=== PATIENT | female | born 1950 | race Two or more races ===

== ENCOUNTER → 2022-12-07 | Outpatient (CLI) | payer OTHER, MEDICAID ==
[2022-12-07 09:07] LABS: Basophils # (auto) 0.1 10 ^3/uL (0-0.2); Hemoglobin 11.3 g/dL (12.2-16.2); Neutrophils # (auto) 3.9 10 ^3/uL (1.6-8.6); Nucleated Red Blood Cells % 0.1 %
[2022-12-07 09:09] LABS: Eosinophils # (auto) 1.2 10 ^3/uL (0-0.8); Eosinophils % (auto) 12.3 % (0.0-7.0); Hematocrit 35.7 % (36.0-46.0); Lymphocytes # (auto) 3.7 10 ^3/uL (0.4-5.4); Lymphocytes % (auto) 39.4 % (10.0-50.0); Mean Corpuscular Hemoglobin 23.8 pg (28.0-32.0); Mean Corpuscular Hgb Conc. 31.7 g/dL (32.0-36.0); Monocytes # (auto) 0.6 10 ^3/uL (0-1.3); Neutrophils % (auto) 41.3 % (37.0-80.0); Red Blood Cells 4.76 10^6/uL (4.0-5.20); Red Cell Distribution Width 19.3 % (11.8-14.3); White Blood Cell 9.5 10^3/uL (4.4-10.8)
[2022-12-07 09:50] LABS: Urine Bacteria FEW /hpf (None Seen); Urine Blood Negative /uL (Negative); Urine Clarity Clear (Clear); Urine Color Colorless (Yellow); Urine Protein, UAD Negative (Negative); Urine Specific Gravity 1.015 (1.001-1.035); Urine Urobilinogen Normal (Negative); Urine WBC 2 /hpf (0 - 5); Urine pH 5.5 (5.0-8.0)
[2022-12-07 10:28] LABS: Alanine Aminotransferase 31 U/L (7-40); Alkaline Phosphatase 78 U/L (46-116); Anion Gap 9 (5-15); Calcium 9.7 mg/dL (8.5-10.1); Carbon Dioxide 28 mmol/L (20-30); Chloride 102 mmol/L (98-107); Creatinine, Urine 62.55 mg/dL (30.0-125.0); Glucose 145 mg/dL (74-106); Potassium 4.1 mmol/L (3.5-5.1); Sodium 139 mmol/L (136-145)
[2022-12-07 10:29] LABS: LDL Cholesterol 106 mg/dL (< 100); Triglycerides 226 mg/dL (< 150)
[2022-12-07 10:30] LABS: Albumin 4.6 g/dL (3.2-4.8); Aspartate Aminotransferase 32 U/L (13-40); BUN/Creatinine Ratio 18.2 (10.0-20.0); Blood Urea Nitrogen 10 mg/dL (9-23); Cholesterol 179 mg/dL (< 200); HDL Cholesterol 44 mg/dL (40-59)
[2022-12-07 10:31] LABS: Bilirubin, Total 0.4 mg/dL (0.2-1.0); Total Protein 7.9 g/dL (5.7-8.2)
== END | disposition home or self-care (01) ==
LOC: LAB 08:54
PROVIDERS: ATTEND Student in an Organized Health Care Education/Training Program
DX: E11.9 Type 2 diabetes mellitus without complications (principal); E78.5 Hyperlipidemia, unspecified; D64.9 Anemia, unspecified
CPT/HCPCS: 36415; 80053; 80061; 81001; 82043; 82306; 82570; 83036; 84443; 85025

== ENCOUNTER → 2023-02-10 | Outpatient (CLI) | payer OTHER, MEDICAID ==
[2023-02-10 07:37] LABS: Basophils # (auto) 0 10 ^3/uL (0-0.2); Eosinophils # (auto) 0.2 10 ^3/uL (0-0.8); Hemoglobin 11.7 g/dL (12.2-16.2); Lymphocytes # (auto) 4.1 10 ^3/uL (0.4-5.4); Monocytes # (auto) 0.5 10 ^3/uL (0-1.3)
[2023-02-10 07:40] LABS: Basophils % (auto) 0.4 % (0.0-2.0); Eosinophils % (auto) 2.8 % (0.0-7.0); Hematocrit 36.7 % (36.0-46.0); Lymphocytes % (auto) 47.7 % (10.0-50.0); Mean Corpuscular Hemoglobin 25.5 pg (28.0-32.0); Mean Corpuscular Hgb Conc. 31.9 g/dL (32.0-36.0); Monocytes % (auto) 5.8 % (0.0-12.0); Neutrophils # (auto) 3.8 10 ^3/uL (1.6-8.6); Neutrophils % (auto) 43.3 % (37.0-80.0); Red Blood Cells 4.59 10^6/uL (4.0-5.20); White Blood Cell 8.7 10^3/uL (4.4-10.8)
[2023-02-10 07:41] LABS: Urine Bacteria NONE SEEN /hpf (None Seen); Urine Blood Negative /uL (Negative); Urine Clarity HAZY (Clear); Urine Color Yellow (Yellow); Urine Protein, UAD TRACE (Negative); Urine Specific Gravity 1.015 (1.001-1.035); Urine Urobilinogen Normal (Negative); Urine WBC 18 /hpf (0 - 5); Urine pH 5.5 (5.0-8.0)
[2023-02-10 07:54] LABS: Red Cell Distribution Width 21.4 % (11.8-14.3)
[2023-02-10 08:55] LABS: Alanine Aminotransferase 24 U/L (7-40); Alkaline Phosphatase 99 U/L (46-116); Anion Gap 10 (5-15); BUN/Creatinine Ratio 15.3 (10.0-20.0); Blood Urea Nitrogen 9 mg/dL (9-23); Calcium 9.7 mg/dL (8.5-10.1); Carbon Dioxide 27 mmol/L (20-30); Chloride 104 mmol/L (98-107); Glucose 139 mg/dL (74-106); LDL Cholesterol 52 mg/dL (< 100); Potassium 3.8 mmol/L (3.5-5.1); Sodium 141 mmol/L (136-145); Triglycerides 137 mg/dL (< 150)
[2023-02-10 08:56] LABS: Albumin 4.6 g/dL (3.2-4.8); Aspartate Aminotransferase 28 U/L (13-40)
[2023-02-10 08:57] LABS: Bilirubin, Total 0.5 mg/dL (0.2-1.0); Cholesterol 110 mg/dL (< 200); HDL Cholesterol 41 mg/dL (40-59); Total Protein 7.5 g/dL (5.7-8.2)
[2023-02-10 12:58] LABS: Anisocytosis Slight; Platelet Estimate Adequate
== END | disposition home or self-care (01) ==
LOC: LAB 07:12
PROVIDERS: ATTEND Student in an Organized Health Care Education/Training Program
DX: E11.9 Type 2 diabetes mellitus without complications (principal); E78.5 Hyperlipidemia, unspecified; E55.9 Vitamin D deficiency, unspecified
CPT/HCPCS: 36415; 80053; 80061; 81001; 82306; 83036; 85025

== ENCOUNTER → 2023-06-27 | Outpatient (CLI) | payer MEDICAID ==
[~2023-06-27] MED LIST: NIRM1TAB8 PO
[2023-06-27 09:25] LABS: Urine Bacteria None Seen /hpf (None Seen)
[2023-06-27 09:56] LABS: Basophils # (auto) 0 10 ^3/uL (0-0.2); Basophils % (auto) 0.3 % (0.0-2.0); Eosinophils # (auto) 0.2 10 ^3/uL (0-0.8); Neutrophils # (auto) 4.4 10 ^3/uL (1.6-8.6)
[2023-06-27 09:58] LABS: Eosinophils % (auto) 2.5 % (0.0-7.0); Hematocrit 36.2 % (36.0-46.0); Hemoglobin 11.9 g/dL (12.2-16.2); Lymphocytes # (auto) 3.8 10 ^3/uL (0.4-5.4); Lymphocytes % (auto) 42.6 % (10.0-50.0); Mean Corpuscular Hemoglobin 27.1 pg (28.0-32.0); Mean Corpuscular Hgb Conc. 32.8 g/dL (32.0-36.0); Mean Corpuscular Volume 82.7 fL (80.0-100.0); Monocytes # (auto) 0.5 10 ^3/uL (0-1.3); Monocytes % (auto) 5.8 % (0.0-12.0); Neutrophils % (auto) 48.8 % (37.0-80.0); Red Blood Cells 4.37 10^6/uL (4.0-5.20); Red Cell Distribution Width 17.4 % (11.8-14.3)
[2023-06-27 10:28] LABS: Alanine Aminotransferase 16 U/L (7-40); Alkaline Phosphatase 54 U/L (46-116); Anion Gap 9 (5-15); BUN/Creatinine Ratio 13.3 (10.0-20.0); Blood Urea Nitrogen 8 mg/dL (9-23); Calcium 9.8 mg/dL (8.5-10.1); Carbon Dioxide 29 mmol/L (20-30); Chloride 101 mmol/L (98-107); Glucose 143 mg/dL (74-106); Potassium 4.1 mmol/L (3.5-5.1); Sodium 139 mmol/L (136-145); Triglycerides 140 mg/dL (< 150)
[2023-06-27 10:29] LABS: Albumin 4.7 g/dL (3.2-4.8); Aspartate Aminotransferase 25 U/L (13-40); LDL Cholesterol 36 mg/dL (< 100)
[2023-06-27 10:30] LABS: Bilirubin, Total 0.5 mg/dL (0.2-1.0); Cholesterol 98 mg/dL (< 200); HDL Cholesterol 42 mg/dL (40-59); Total Protein 7.9 g/dL (5.7-8.2)
[2023-06-27 11:49] LABS: Urine Blood Negative /uL (Negative); Urine Clarity Clear (Clear); Urine Color Yellow (Yellow); Urine Hyaline Cast FEW /lpf (0 - 2); Urine Mucus FEW (None Seen); Urine Protein, UAD 1+ (Negative); Urine Urobilinogen Normal (Negative); Urine WBC 29 /hpf (0 - 5)
== END | disposition home or self-care (01) ==
LOC: LAB 09:14
PROVIDERS: ATTEND Student in an Organized Health Care Education/Training Program
DX: E11.42 Type 2 diabetes mellitus with diabetic polyneuropathy (principal); E78.5 Hyperlipidemia, unspecified; E55.9 Vitamin D deficiency, unspecified; D64.9 Anemia, unspecified
CPT/HCPCS: 36415; 80053; 80061; 81001; 82306; 83036; 84443; 85025

== ENCOUNTER → 2023-07-21 | Day surgery (SDC) | payer MEDICAID ==
[2023-07-14 10:59] LABS: Basophils # (auto) 0 10 ^3/uL (0-0.2); Basophils % (auto) 0.4 % (0.0-2.0); Eosinophils # (auto) 0.2 10 ^3/uL (0-0.8); Eosinophils % (auto) 2.4 % (0.0-7.0); Hematocrit 35.2 % (36.0-46.0); Hemoglobin 11.4 g/dL (12.2-16.2); Lymphocytes # (auto) 2.9 10 ^3/uL (0.4-5.4); Lymphocytes % (auto) 38.2 % (10.0-50.0); Mean Corpuscular Hemoglobin 26.9 pg (28.0-32.0); Mean Corpuscular Hgb Conc. 32.4 g/dL (32.0-36.0); Mean Corpuscular Volume 83.1 fL (80.0-100.0); Monocytes # (auto) 0.4 10 ^3/uL (0-1.3); Red Blood Cells 4.23 10^6/uL (4.0-5.20); Red Cell Distribution Width 16.6 % (11.8-14.3); White Blood Cell 7.5 10^3/uL (4.4-10.8)
[2023-07-14 11:12] LABS: INR 1.11 (0.9-1.15); Partial Thromboplastin Time 25.3 SEC (24.5-34.5); Prothrombin Time 11.7 sec (9.3-11.8)
[2023-07-14 11:29] LABS: Alanine Aminotransferase 22 U/L (7-40); Alkaline Phosphatase 54 U/L (46-116); Anion Gap 8 (5-15); BUN/Creatinine Ratio 12.9 (10.0-20.0); Blood Urea Nitrogen 8 mg/dL (9-23); Calcium 10.2 mg/dL (8.5-10.1); Carbon Dioxide 28 mmol/L (20-30); Chloride 101 mmol/L (98-107); Glucose 271 mg/dL (74-106); Potassium 3.9 mmol/L (3.5-5.1); Sodium 137 mmol/L (136-145)
[2023-07-14 11:30] LABS: Albumin 4.5 g/dL (3.2-4.8); Aspartate Aminotransferase 24 U/L (13-40); Bilirubin, Total 0.4 mg/dL (0.2-1.0); Total Protein 7.5 g/dL (5.7-8.2)
[~2023-07-21] VITALS: Ht 162.6 cm; Wt 65.8 kg
[~2023-07-21] MED LIST changes: -NIRM1TAB8 PO; +SODIUM CHLORIDE LOCK 10 ML ONE
[2023-07-21 12:36] VITALS: O2SAT 96
[2023-07-21] MEDS: LIDOCAINE VISCOUS 2% 15ML UD ONE (12:46)
[2023-07-21] MEDS: fentaNYL CITRATE 100 MCG/2 ML VL ONE (12:49)
[2023-07-21] MEDS: MIDAZOLAM HCL 5 MG/ML-1ML VIAL ONE (12:49)
[2023-07-21] MEDS: diphenhdrAMINE HCL 50 MG/1 ML VL ONE (12:49)
[2023-07-21 13:00] VITALS: TEMP 98; O2SAT 93
[2023-07-21 13:35] VITALS: BP 129/70; PULSE 74; RESP 19; O2SAT 95
== END | disposition home or self-care (01) ==
LOC: GI 09:29
PROVIDERS: ATTEND Internal Medicine Gastroenterology
DX: C7A.092 Malignant carcinoid tumor of the stomach (principal); K29.70 Gastritis, unspecified, without bleeding; K29.50 Unspecified chronic gastritis without bleeding; K21.9 Gastro-esophageal reflux disease without esophagitis; E11.9 Type 2 diabetes mellitus without complications; J45.909 Unspecified asthma, uncomplicated; F32.A Depression, unspecified; Z86.16 Personal history of COVID-19; Z90.710 Acquired absence of both cervix and uterus
CPT/HCPCS: 36415; 43239; 80053; 82962; 85025; 85610; 85730; 88305; 88312; 88342; J1200; J2250; J3010; J7030

== ENCOUNTER → 2023-10-18 | Outpatient (CLI) | payer MEDICAID ==
[2023-10-18 07:39] LABS: Basophils # (auto) 0 10 ^3/uL (0-0.2); Basophils % (auto) 0.5 % (0.0-2.0); Eosinophils # (auto) 0.2 10 ^3/uL (0-0.8); Eosinophils % (auto) 2.7 % (0.0-7.0); Hematocrit 35.7 % (36.0-46.0); Hemoglobin 11.6 g/dL (12.2-16.2); Lymphocytes % (auto) 44.8 % (10.0-50.0); Mean Corpuscular Hemoglobin 27.1 pg (28.0-32.0); Mean Corpuscular Hgb Conc. 32.4 g/dL (32.0-36.0); Mean Corpuscular Volume 83.5 fL (80.0-100.0); Monocytes # (auto) 0.5 10 ^3/uL (0-1.3); Monocytes % (auto) 5.7 % (0.0-12.0); Neutrophils # (auto) 4.2 10 ^3/uL (1.6-8.6); Neutrophils % (auto) 46.3 % (37.0-80.0); Nucleated Red Blood Cells % 0.1 %; Red Blood Cells 4.28 10^6/uL (4.0-5.20)
[2023-10-18 08:22] LABS: Urine Bacteria FEW /hpf (None Seen); Urine Blood Negative /uL (Negative); Urine Clarity Clear (Clear); Urine Color Yellow (Yellow); Urine Mucus FEW (None Seen); Urine Protein, UAD TRACE (Negative); Urine Specific Gravity 1.023 (1.001-1.035); Urine Urobilinogen Normal (Negative); Urine WBC 4 /hpf (0 - 5)
[2023-10-18 08:41] LABS: Alanine Aminotransferase 24 U/L (7-40); Albumin 4.6 g/dL (3.2-4.8); Alkaline Phosphatase 59 U/L (46-116); Anion Gap 7 (5-15); Aspartate Aminotransferase 21 U/L (13-40); Carbon Dioxide 28 mmol/L (20-30); Chloride 104 mmol/L (98-107); Glucose 171 mg/dL (74-106); LDL Cholesterol 49 mg/dL (< 100); Sodium 139 mmol/L (136-145); Triglycerides 208 mg/dL (< 150)
[2023-10-18 08:42] LABS: Bilirubin, Total 0.4 mg/dL (0.2-1.0); Cholesterol 116 mg/dL (< 200); HDL Cholesterol 42 mg/dL (40-59); Total Protein 7.5 g/dL (5.7-8.2)
[2023-10-18 08:48] LABS: BUN/Creatinine Ratio 16.9 (10.0-20.0); Blood Urea Nitrogen 10 mg/dL (9-23)
== END | disposition home or self-care (01) ==
LOC: LAB 07:15
DX: E11.9 Type 2 diabetes mellitus without complications (principal); E78.5 Hyperlipidemia, unspecified; D64.9 Anemia, unspecified; J30.2 Other seasonal allergic rhinitis
CPT/HCPCS: 36415; 80053; 80061; 81001; 82306; 83036; 84443; 85025

== ENCOUNTER 2023-11-21 09:58 | Day surgery (SDC) | payer MEDICAID ==
[2023-11-16 10:46] LABS: Basophils # (auto) 0 10 ^3/uL (0-0.2); Basophils % (auto) 0.3 % (0.0-2.0); Eosinophils # (auto) 0.2 10 ^3/uL (0-0.8); Eosinophils % (auto) 2.4 % (0.0-7.0); Hematocrit 34.6 % (36.0-46.0); Hemoglobin 11.4 g/dL (12.2-16.2); Lymphocytes % (auto) 36.9 % (10.0-50.0); Mean Corpuscular Hemoglobin 27.4 pg (28.0-32.0); Mean Corpuscular Hgb Conc. 32.9 g/dL (32.0-36.0); Mean Corpuscular Volume 83.1 fL (80.0-100.0); Monocytes # (auto) 0.5 10 ^3/uL (0-1.3); Monocytes % (auto) 5.7 % (0.0-12.0); Neutrophils # (auto) 4.5 10 ^3/uL (1.6-8.6); Neutrophils % (auto) 54.7 % (37.0-80.0); Platelet Count (auto) 237 10^3/uL (140-450); Red Blood Cells 4.17 10^6/uL (4.0-5.20); Red Cell Distribution Width 16.7 % (11.8-14.3); White Blood Cell 8.2 10^3/uL (4.4-10.8)
[2023-11-16 10:59] LABS: Alanine Aminotransferase 23 U/L (7-40); Albumin 4.6 g/dL (3.2-4.8); Alkaline Phosphatase 53 U/L (46-116); Anion Gap 8 (5-15); Aspartate Aminotransferase 24 U/L (13-40); BUN/Creatinine Ratio 14.5 (10.0-20.0); Blood Urea Nitrogen 9 mg/dL (9-23); Carbon Dioxide 28 mmol/L (20-30); Chloride 104 mmol/L (98-107); Glucose 199 mg/dL (74-106); Potassium 3.6 mmol/L (3.5-5.1); Sodium 140 mmol/L (136-145)
[2023-11-16 11:00] LABS: Bilirubin, Total 0.5 mg/dL (0.2-1.0); Total Protein 7.5 g/dL (5.7-8.2)
[2023-11-16 11:36] LABS: INR 1.14 (0.9-1.15); Partial Thromboplastin Time 25.4 SEC (24.5-34.5)
[~2023-11-21] VITALS: Ht 162.6 cm; Wt 64.9 kg
[~2023-11-21 09:58] MED LIST changes: +METF-372 PO; +MONT-8 OR; +SEMA2INJ3 SC; +SERT25TA28 PO; -SODIUM CHLORIDE LOCK 10 ML ONE; +TRAZ-228 PO
[2023-11-21] MEDS ORDERED: SODIUM CHLORIDE LOCK 10 ML ONE (10:21)
[2023-11-21 13:00] VITALS: PULSE 73; RESP 14; O2SAT 98
[2023-11-21] MEDS: fentaNYL CITRATE 100 MCG/2 ML VL ONE (13:05)
[2023-11-21] MEDS: diphenhdrAMINE HCL 50 MG/1 ML VL ONE (13:05)
[2023-11-21] MEDS: MIDAZOLAM HCL 5 MG/ML-1ML VIAL ONE (13:05)
[2023-11-21 13:31] VITALS: PULSE 79; RESP 17; O2SAT 93
[2023-11-21 14:00] VITALS: BP 142/73; PULSE 93; RESP 17; O2SAT 93
== END 2023-11-21 14:15 | disposition home or self-care (01) ==
LOC: GI 09:58
PROVIDERS: ATTEND Internal Medicine Gastroenterology
DX: Z12.11 Encounter for screening for malignant neoplasm of colon (principal); K63.5 Polyp of colon; K57.30 Diverticulosis of large intestine without perforation or abscess without bleeding; K64.0 First degree hemorrhoids; K63.89 Other specified diseases of intestine; E11.9 Type 2 diabetes mellitus without complications; J45.909 Unspecified asthma, uncomplicated; Z79.899 Other long term (current) drug therapy; Z86.010 Personal history of colon polyps; Z85.020 Personal history of malignant carcinoid tumor of stomach
CPT/HCPCS: 36415; 45385; 80053; 82962; 85025; 85610; 85730; 88305; J1200; J2250; J3010; J7030; 99152

== ENCOUNTER → 2024-01-16 | Outpatient (CLI) | payer MEDICAID ==
[2024-01-16 08:01] LABS: Basophils # (auto) 0 10 ^3/uL (0-0.2); Basophils % (auto) 0.4 % (0.0-2.0); Eosinophils # (auto) 0.2 10 ^3/uL (0-0.8); Eosinophils % (auto) 2.4 % (0.0-7.0); Hematocrit 37.6 % (36.0-46.0); Lymphocytes # (auto) 3.7 10 ^3/uL (0.4-5.4); Lymphocytes % (auto) 44.8 % (10.0-50.0); Mean Corpuscular Hemoglobin 26.6 pg (28.0-32.0); Mean Corpuscular Hgb Conc. 31.8 g/dL (32.0-36.0); Mean Corpuscular Volume 83.7 fL (80.0-100.0); Monocytes # (auto) 0.6 10 ^3/uL (0-1.3); Monocytes % (auto) 6.9 % (0.0-12.0); Neutrophils # (auto) 3.8 10 ^3/uL (1.6-8.6); Neutrophils % (auto) 45.5 % (37.0-80.0); Nucleated Red Blood Cells % 0.1 %; Platelet Count (auto) 216 10^3/uL (140-450); Red Cell Distribution Width 16.4 % (11.8-14.3); White Blood Cell 8.3 10^3/uL (4.4-10.8)
[2024-01-16 08:06] LABS: Urine Blood Negative /uL (Negative); Urine Clarity Clear (Clear); Urine Color Light-Yellow (Yellow); Urine Protein, UAD TRACE (Negative); Urine Specific Gravity 1.015 (1.001-1.035); Urine Urobilinogen Normal (Negative)
[2024-01-16 08:26] LABS: Creatinine, Urine 117.33 mg/dL (30.0-125.0)
[2024-01-16 08:29] LABS: Alanine Aminotransferase 26 U/L (7-40); Albumin 4.6 g/dL (3.2-4.8); Alkaline Phosphatase 58 U/L (46-116); Anion Gap 5 (5-15); Aspartate Aminotransferase 27 U/L (13-40); BUN/Creatinine Ratio 11.3 (10.0-20.0); Blood Urea Nitrogen 7 mg/dL (9-23); Calcium 9.7 mg/dL (8.7-10.4); Carbon Dioxide 31 mmol/L (20-31); Chloride 104 mmol/L (98-107); Cholesterol 89 mg/dL (< 200); Glucose 141 mg/dL (74-106); HDL Cholesterol 41 mg/dL (40-59); LDL Cholesterol 31 mg/dL (< 100); Potassium 4.2 mmol/L (3.5-5.1); Sodium 140 mmol/L (136-145); Triglycerides 114 mg/dL (< 150)
[2024-01-16 08:30] LABS: Bilirubin, Total 0.4 mg/dL (0.2-1.0); Total Protein 7.8 g/dL (5.7-8.2)
== END | disposition home or self-care (01) ==
LOC: LAB 07:46
DX: E11.42 Type 2 diabetes mellitus with diabetic polyneuropathy (principal); E55.9 Vitamin D deficiency, unspecified; D64.9 Anemia, unspecified
CPT/HCPCS: 36415; 80053; 80061; 81003; 82043; 82306; 82570; 82607; 83036; 85025

== ENCOUNTER 2024-03-09 13:05 | Inpatient (IN) | payer MEDICAID ==
[~2024-03-09] VITALS: Ht 160 cm; Wt 67.7 kg
[2024-03-09 14:56] LABS: Basophils # (auto) 0 10 ^3/uL (0-0.2); Eosinophils # (auto) 0.3 10 ^3/uL (0-0.8); Eosinophils % (auto) 2.2 % (0.0-7.0); Hematocrit 33.2 % (36.0-46.0); Lymphocytes % (auto) 30.6 % (10.0-50.0); Monocytes # (auto) 0.9 10 ^3/uL (0-1.3); Neutrophils # (auto) 6.7 10 ^3/uL (1.6-8.6); Red Blood Cells 4.01 10^6/uL (4.0-5.20)
[2024-03-09 14:59] LABS: Basophils % (auto) 0.2 % (0.0-2.0); Hemoglobin 10.8 g/dL (12.2-16.2); Lymphocytes # (auto) 3.4 10 ^3/uL (0.4-5.4); Mean Corpuscular Hemoglobin 26.9 pg (28.0-32.0); Mean Corpuscular Hgb Conc. 32.5 g/dL (32.0-36.0); Mean Corpuscular Volume 82.7 fL (80.0-100.0); Monocytes % (auto) 7.6 % (0.0-12.0); Neutrophils % (auto) 59.4 % (37.0-80.0); Platelet Count (auto) 247 10^3/uL (140-450); Red Cell Distribution Width 17.3 % (11.8-14.3); White Blood Cell 11.2 10^3/uL (4.4-10.8)
[2024-03-09 15:12] LABS: Alanine Aminotransferase 23 U/L (7-40); Albumin 4.6 g/dL (3.2-4.8); Alkaline Phosphatase 60 U/L (46-116); Anion Gap 9 (5-15); Aspartate Aminotransferase 28 U/L (13-40); BUN/Creatinine Ratio 16.7 (10.0-20.0); Bilirubin, Total 0.6 mg/dL (0.2-1.0); Blood Urea Nitrogen 10 mg/dL (9-23); Calcium 10.1 mg/dL (8.7-10.4); Carbon Dioxide 26 mmol/L (20-31); Chloride 106 mmol/L (98-107); Potassium 3.8 mmol/L (3.5-5.1); Sodium 141 mmol/L (136-145); Total Protein 7.5 g/dL (5.7-8.2)
--- NOTE | 2024-03-09 15:12 | ED.PDOC ---
Ahsan. trauma (HPI) HPI Comments HPI: 73 Y F, post fall presents to the ED with CC of fall injury. Patient states, that on 03/06/24 she got up to use the bath did not turn the lights one causing her to fall and trip landing on her left shoulder. Patient relays, that she was seen this morning on 03/09/24 at [facility] for a left shoulder x-ray; and was relayed here for further treatment. Patient denies any LOC, musculoskeletal pain, or N/V/D. VITALS: T:98.3 HR:100 RR:18 O2:98 BP:131/96 SOCIAL HX: DENIES TOBACCO USAGE, ETOH CONSUMPTION, OR ILLICIT DRUG USE SHX: HYSTERECTOMY PMHX: DM, INSOMNIA ALLERGIES: NKA Chief Complaint: Fall Injury Time Seen by MD: 15:00 Reviewed notes: Nurses Notes, Medications, Allergies Allergies: Coded Allergies: NO KNOWN ALLERGIES (Unverified , 03/04/23) Home Meds Reported Medications Trazodone Hcl (Trazodone Hcl) 100 Mg Tab, 50 MG PO QPM, TAB 11/17/23 Montelukast Sodium (MONTELUKAST SODIUM) 10 Mg Tab, 10 MG OR DAILY, TAB 11/17/23 Semaglutide (Ozempic) 2 Mg/3 Ml Inj, 2 MG SC QWEEKLY, INJ 11/17/23 Metformin Hydrochloride (Metformin Hcl) 1,000 Mg Tab, 1000 MG PO BID, TAB 11/17/23 Sertraline Hcl (Sertraline Hcl) Unknown Strength Tab, PO DAILY, TAB 11/17/23 Information Source: Patient Mode of Arrival: Wheelchair Severity: Mild Timing: Days Duration: Since onset Location: (L) Shoulder Location of laceration: None Mechanism: Fall Associated signs and symtoms: None Was a procedure done? Was a procedure done?: No X-Ray, Labs, Meds, VS Vital Signs Date Time Temp Pulse Resp B/P (MAP) Pulse Ox O2 Delivery O2 Flow Rate FiO2 03/09/24 13:33 98.3 100 18 131/96 (108) 98 Lab Test 03/09/24 17:26 03/09/24 15:29 03/09/24 14:25 Range/Units Troponin I High Sensitivity Pending < 3 L < 3 L </=34 ng/L White Blood Count 11.2 H 4.4-10.8 10^3/uL Red Blood Count 4.01 4.0-5.20 10^6/uL Hemoglobin 10.8 L 12.2-16.2 g/dL Hematocrit 33.2 L 36.0-46.0 % Mean Corpuscular Volume 82.7 80.0-100.0 fL Mean Corpuscular Hemoglobin 26.9 L 28.0-32.0 pg Mean Corpuscular Hemoglobin Concent 32.5 32.0-36.0 g/dL Red Cell Distribution Width 17.3 H 11.8-14.3 % Platelet Count 247 140-450 10^3/uL Mean Platelet Volume 7.9 6.9-10.8 fL Neutrophils (%) (Auto) 59.4 37.0-80.0 % Lymphocytes (%) (Auto) 30.6 10.0-50.0 % Monocytes (%) (Auto) 7.6 0.0-12.0 % Eosinophils (%) (Auto) 2.2 0.0-7.0 % Basophils (%) (Auto) 0.2 0.0-2.0 % Neutrophils # (Auto) 6.7 1.6-8.6 10 ^3/uL Lymphocytes # (Auto) 3.4 0.4-5.4 10 ^3/uL Monocytes # (Auto) 0.9 0-1.3 10 ^3/uL Eosinophils # (Auto) 0.3 0-0.8 10 ^3/uL Basophils # (Auto) 0 0-0.2 10 ^3/uL Nucleated Red Blood Cells 0.0 % Sodium Level 141 136-145 mmol/L Potassium Level 3.8 3.5-5.1 mmol/L Chloride Level 106 98-107 mmol/L Carbon Dioxide Level 26 20-31 mmol/L Anion Gap 9 5-15 Blood Urea Nitrogen 10 9-23 mg/dL Creatinine 0.60 0.550-1.02 mg/dL Glomerular Filtration Rate Calc 96 >90 mL/min BUN/Creatinine Ratio 16.7 10.0-20.0 Serum Glucose 153 H 74-106 mg/dL Lactic Acid Level 1.2 0.4-2.0 mmol/L Calcium Level 10.1 8.7-10.4 mg/dL Total Bilirubin 0.6 0.2-1.0 mg/dL Aspartate Amino Transferase (AST) 28 13-40 U/L Alanine Aminotransferase (ALT) 23 7-40 U/L Alkaline Phosphatase 60 46-116 U/L Creatine Kinase 186 H 34-145 U/L Total Protein 7.5 5.7-8.2 g/dL Albumin 4.6 3.2-4.8 g/dL [place] [id number] Ph: [phone] DIAGNOSTIC IMAGING Diagnostic Imaging Report : [id number] Signed PATIENT: MALLORY JI ACCT: [id number] UNIT: [id number] : 1950 LOC: XY ROOM / BED: / AGE / SEX: 73 / F ADM STATUS: REG CLI SERVICE 1229 ORDERING PHYSICIAN: VIKTORIA MAE NP PROCEDURE(s): LSHD2 - L SHOULDER 2+ VIEW XRAY REASON: S/P FALL ORDER NUMBER(s): [id number], ACCESSION NUMBER(s): [id number] EXAM: XY L SHOULDER 2+ VIEW XRAY CLINICAL HISTORY: S/P FALL COMPARISON: None TECHNIQUE: XY L SHOULDER 2+ VIEW XRAY Findings/Impression: 3 views of the left shoulder. Anterior inferior dislocation of the left shoulder with a markedly displaced comminuted fracture of the humeral head. There is no evidence of blastic or lytic lesions. No radiopaque foreign bodies. ATED BY: DESTINEE DIAZ DO DICTATED DATE/TIME: 03/09/24 130 SIGNED BY: DESTINEE DIAZ DO SIGNED DATE/TIME: 03/09/24 1305 CC: [place] [id number] Ph: [phone] DIAGNOSTIC IMAGING Diagnostic Imaging Report : [id number] Signed PATIENT: MALLORY JI ACCT: [id number] UNIT: [id number] : 1950 LOC: ER ROOM / BED: / AGE / SEX: 73 / F ADM STATUS: REG ER SERVICE 1533 ORDERING PHYSICIAN: DERRICK TURNER DO PROCEDURE(s): UPEWO - UPPER EXTREMITY WO CONTRAST REASON: Left shoulder injury ORDER NUMBER(s): [id number], ACCESSION NUMBER(s): [id number] EXAM: CT UPPER EXTREMITY WO CONTRAST INDICATION: Left shoulder injury EXAM DATE: 03/09/2024 03:38 PM COMPARISON: None TECHNIQUE: Multiple axial CT images of the left shoulder were obtained using bone algorithm. Axial and coronal reformatting was done. Bone and soft tissue windows were reviewed. Radiation Dose Information: CT Dose: CTDI volume is 22.92 mGy. Dose-length product is 521.49 mGy*cm Findings/Impression: Anterior inferior dislocation of the left shoulder with comminuted fracture of the humeral head. There is no evidence of blastic or lytic lesions. No radiopaque foreign bodies. Small joint effusion. Mild soft tissue edema. ATED BY: DESTINEE DIAZ DO DICTATED DATE/TIME: 03/09/241609 SIGNED BY: DESTINEE DIAZ DO SIGNED DATE/TIME: 03/09/241609 CC: Time of 1ST Reevaluation: 15:30 Reevaluation 1ST: Unchanged Time of 2ND Reevaluation: 15:10 (Case discussed with orthopedic surgery on- call. They recommend admitting the patient to the hospital for surgical intervention. They also requested a CT scan of the left shoulder without contrast.) Patient Education/Counseling: Diagnosis, Treatment Family Education/Counseling: Diagnosis, Treatment Comments Patient presented with fall injury. Patient was found with the above mentioned diagnosis. the following medications were ordered: NONE the following tests were ordered: LABS, CT, EKG Patient ED course and VS have been stabilized. Patient has been reassessed in the ED and remained in a stable condition. Pertinent incidental findings were discussed with the patient and/or family. Patient/family voices understanding and is agreeable with plan. Patient has been observed in the ED adequate length of time to insure improvement/stability. Escalation of care considered: Consideration of escalation to observation or admission Patient was ADMITTED to the medicine team for further evaluation and treatment of their presentation. Patient was discharged. All the reports of any imaging studies that were ordered by myself were reviewed by myself. Departure 1 Departure Time of Disposition: 15:32 Impression: Primary Impression: Dislocation of left shoulder joint Additional Impressions: Shoulder fracture, left Contusion of left upper arm Disposition: ADMITTED INPATIENT Admit to: Tele Condition: Guarded Additional Instructions: [place] [id number] Ph: [phone] DIAGNOSTIC IMAGING Diagnostic Imaging Report : [id number] Signed PATIENT: MALLORY JI ACCT: [id number] UNIT: [id number] : 1950 LOC: XY ROOM / BED: / AGE / SEX: 73 / F ADM STATUS: REG CLI SERVICE 1229 ORDERING PHYSICIAN: VIKTORIA MAE NP PROCEDURE(s): LSHD2 - L SHOULDER 2+ VIEW XRAY REASON: S/P FALL ORDER NUMBER(s): [id number], ACCESSION NUMBER(s): [id number] EXAM: XY L SHOULDER 2+ VIEW XRAY CLINICAL HISTORY: S/P FALL COMPARISON: None TECHNIQUE: XY L SHOULDER 2+ VIEW XRAY Findings/Impression: 3 views of the left shoulder. Anterior inferior dislocation of the left shoulder with a markedly displaced comminuted fracture of the humeral head. There is no evidence of blastic or lytic lesions. No radiopaque foreign bodies. ATED BY: DESTINEE DIAZ DO DICTATED DATE/TIME: 03/09/24 130 SIGNED BY: DESTINEE DIAZ DO SIGNED DATE/TIME: 03/09/24 130 CC: [place] [id number] Ph: [phone] DIAGNOSTIC IMAGING Diagnostic Imaging Report : [id number] Signed PATIENT: MALLORY JI ACCT: [id number] UNIT: [id number] : 1950 LOC: ER ROOM / BED: / AGE / SEX: 73 / F ADM STATUS: REG ER SERVICE 1533 ORDERING PHYSICIAN: DERRICK TURNER DO PROCEDURE(s): UPEWO - UPPER EXTREMITY WO CONTRAST REASON: Left shoulder injury ORDER NUMBER(s): [id number], ACCESSION NUMBER(s): [id number] EXAM: CT UPPER EXTREMITY WO CONTRAST INDICATION: Left shoulder injury EXAM DATE: 03/09/2024 03:38 PM COMPARISON: None TECHNIQUE: Multiple axial CT images of the left shoulder were obtained using bone algorithm. Axial and coronal reformatting was done. Bone and soft tissue windows were reviewed. Radiation Dose Information: CT Dose: CTDI volume is 22.92 mGy. Dose-length product is 521.49 mGy*cm Findings/Impression: Anterior inferior dislocation of the left shoulder with comminuted fracture of the humeral head. There is no evidence of blastic or lytic lesions. No radiopaque foreign bodies. Small joint effusion. Mild soft tissue edema. ATED BY: DESTINEE DIAZ DO DICTATED DATE/TIME: 03/09/24 1610 SIGNED BY: DESTINEE DIAZ DO SIGNED DATE/TIME: 03/09/24 161 CC: Discharged With: Self Critical Care Note Critical Care Time?: No Stability Stability form required: No I personally scribed for DERRICK TURNER DO ([email or web address]) on 03/09/24 at 15:12. Electronically submitted by Jenni Griffith ([email or web address]). I personally scribed for DERRICK TURNER DO ([email or web address]) on 03/09/24 at 17:55. Electronically submitted by Jenni Griffith ([email or web address]). DERRICK TURNER DO Mar 09, 2024 15:12
[2024-03-09 15:29] LABS: Creatine Kinase IFCC 186 U/L (34-145); Glucose 153 mg/dL (74-106)
--- NOTE | 2024-03-09 16:13 | DVH ---
EXAM: CT UPPER EXTREMITY WO CONTRAST INDICATION: Left shoulder injury EXAM DATE: 03/09/2024 03:38 PM COMPARISON: None TECHNIQUE: Multiple axial CT images of the left shoulder were obtained using bone algorithm. Axial an d coronal reformatting was done. Bone and soft tissue windows were reviewed. Radiation Dose Information: CT Dose: CTDI volume is 22.92 mGy. Dose-length product is 521.49 mGy*cm Findings/Impression: Anterior inferior dislocation of the left shoulder with comminuted fracture of the humeral head. There is no evidence of blastic or lytic lesions. No radiopaque foreign bodies. Small joint effusion. Mild soft tissue edema.
[2024-03-09] MEDS ORDERED: DOCUSATE SOD 100 MG CAP PO PRN (20:45)
[2024-03-09] MEDS ORDERED: ONDANSETRON HCL 4 MG/2 ML VIAL IV PRN (20:45)
[2024-03-09] MEDS ORDERED: DEXTROSE (50%) 50ML SYRG IV PRN (20:45)
[2024-03-09] MEDS: SODIUM CHLORIDE 0.9% 1,000 ML IV SCH (20:45)
[2024-03-09] MEDS: ACCU-CHEK COMFORT CURVE STRIP VI SCH (22:00)
[2024-03-09] MEDS: HYDROcodone-ACET 5/325MG TAB PO PRN (22:37)
[2024-03-09] MEDS: cefTRIAXone 1GM/50ML D5W 50 ML IV ONE (22:37)
--- NOTE | 2024-03-09 22:37 | DVHHP2 ---
History of Present Illness Reason for Visit: Shoulder fracture, left History of Present Illness The patient is a 73-year-old female with past medical history of diabetes mellitus and insomnia who presented to [facility] ED for evaluation of fall injury. Patient reports on March 06, 2024 she got up to use the bath room when she tripped and fell fell landing on her left shoulder with no medical intervention. Patient developed left shoulder pain and decided to be seen here [facility] today for a left shoulder x-ray. Patient was seen and evaluated in the ED, laboratory data shows WBC 11.2, hemoglobin 10.8, hematocrit 33.2, platelets 247, sodium 141, potassium 3.8, BUN 10, creatinine 0.60, GFR 96, glucose 153, CK 186, troponin 3, blood pressure 131/96, heart rate 100, temperature 98.3 F, O2 saturation 98% on room air. Left shoulder CT revealing anterior inferior dislocation of the left shoulder with comminuted fracture of the humeral head, small joint effusion, mild soft tissue edema. Patient was started on IV antibiotic regimen Rocephin, please see medication orders section in the computer. On my assessment, patient denied chest pain, no headache, no dizziness, no diaphoresis, no loss of consciousness, no nausea, no vomiting, no fever, no chills. Patient was admitted for further evaluation and medical management. Past Medical History Diabetes mellitus, Insomnia, depression Past Surgical History Hysterectomy Family History Reviewed, noncontributory to the management of this case. Past Social History The patient lives at home, denies smoking, alcohol or illicit drugs abuse. Review of Systems Constitutional: Yes: Weakness; No: Fever, Chills, Sweats, Malaise, Other Eyes: No: Pain, Vision change, Conjunctivae inflammation, Eyelid inflammation, Other, Redness ENT: No: Ear pain, Ear discharge, Nose pain, Nose discharge, Nose congestion, Mouth pain, Mouth swelling, Throat pain, Throat swelling, Other Respiratory: No: Cough, Dry, Shortness of breath, SOB with excertion, Wheezing, Hemoptysis, Pleuritic Pain, Sputum, Wheezing, Other Cardiovascular: No: Chest Pain, Palpitations, Orthopnea, Paroxysmal Noc. Dyspnea, Edema, Lt Headedness, Other Gastrointestinal: No: Nausea, Vomiting, Abdominal Pain, Diarrhea, Constipation, Melena, Hematochezia, Other Genitourinary: No Dysuria, No Frequency, No Incontinence, No Hematuria, No R etention, No Other Musculoskeletal: other (Left shoulder pain), shoulder pain; No: neck pain, arm pain, back pain, hand pain, leg pain, foot pain Skin: No: Rash, Lesions, Jaundice, Bruising, Other Neurological: No: Weakness, Numbness, Incoordination, Change in speech, Confusion, Seizures, Other Allergies: Coded Allergies: NO KNOWN ALLERGIES (Unverified , 03/04/23) Medications Current Medications Medications Dose Ordered Sig/Cari Route Start Time Stop Time Status Last Admin Dose Admin Diagnostic Test (Pha) 1 strip ACHS 03/09/24 22:00 Insulin Human Regular HS SC 03/09/24 22:00 Insulin Human Regular AC SC 03/10/24 07:00 Dextrose 50 ml UD PRN IV 03/09/24 20:45 Sodium Chloride 1,000 ml @ 60 mls/hr [id number] IV 03/09/24 20:45 Acetaminophen/ Hydrocodone Bitart 1 tab Q4HP PRN PO 03/09/24 20:45 Ondansetron HCl 4 mg Q4HP PRN IV 03/09/24 20:45 Docusate Sodium 100 mg BIDPRN PRN PO 03/09/24 20:45 Enoxaparin Sodium 40 mg DAILY SC 03/10/24 10:00 Acetaminophen 650 mg Q6HP PRN PO 03/09/24 20:45 Ceftriaxone Sodium 50 ml @ 100 mls/hr DAILY@09 IV 03/10/24 09:00 Exam Vital Signs Vital Signs Date Time Temp Pulse Resp B/P (MAP) Pulse Ox O2 Delivery O2 Flow Rate FiO2 03/09/24 22:16 98.7 92 21 132/74 (93) 97 98.7 General Appearance: Alert, Oriented X3, Cooperative, No acute distress HEENT: Atraumatic, PERRLA, EOMI, Mucous membr. moist/pink Respiratory: Clear to auscultation, Normal air movement Cardiovascular: Regular rate, Normal S1, Normal S2, No murmurs Abdominal: Normal bowel sounds, Soft, No tenderness, No hepatospenomegaly, No masses Extremities: No clubbing, No cyanosis, No edema, Normal pulses, Other (Left shoulder tenderness) Skin: No rashes, No breakdown, No significant lesion Neuro: Normal speech, Normal tone, Sensation intact, Cranial nerves 3-12 NL, Reflexes 2+, Other (Generalized weakness) Psych/Mental Status: Mental status NL, Mood NL Labs/Xrays Labs Test 03/09/24 17:26 03/09/24 14:25 Range/Units Troponin I High Sensitivity < 3 L </=34 ng/L White Blood Count 11.2 H 4.4-10.8 10^3/uL Red Blood Count 4.01 4.0-5.20 10^6/uL Hemoglobin 10.8 L 12.2-16.2 g/dL Hematocrit 33.2 L 36.0-46.0 % Mean Corpuscular Volume 82.7 80.0-100.0 fL Mean Corpuscular Hemoglobin 26.9 L 28.0-32.0 pg Mean Corpuscular Hemoglobin Concent 32.5 32.0-36.0 g/dL Red Cell Distribution Width 17.3 H 11.8-14.3 % Platelet Count 247 140-450 10^3/uL Mean Platelet Volume 7.9 6.9-10.8 fL Neutrophils (%) (Auto) 59.4 37.0-80.0 % Lymphocytes (%) (Auto) 30.6 10.0-50.0 % Monocytes (%) (Auto) 7.6 0.0-12.0 % Eosinophils (%) (Auto) 2.2 0.0-7.0 % Basophils (%) (Auto) 0.2 0.0-2.0 % Neutrophils # (Auto) 6.7 1.6-8.6 10 ^3/uL Lymphocytes # (Auto) 3.4 0.4-5.4 10 ^3/uL Monocytes # (Auto) 0.9 0-1.3 10 ^3/uL Eosinophils # (Auto) 0.3 0-0.8 10 ^3/uL Basophils # (Auto) 0 0-0.2 10 ^3/uL Nucleated Red Blood Cells 0.0 % Sodium Level 141 136-145 mmol/L Potassium Level 3.8 3.5-5.1 mmol/L Chloride Level 106 98-107 mmol/L Carbon Dioxide Level 26 20-31 mmol/L Anion Gap 9 5-15 Blood Urea Nitrogen 10 9-23 mg/dL Creatinine 0.60 0.550-1.02 mg/dL Glomerular Filtration Rate Calc 96 >90 mL/min BUN/Creatinine Ratio 16.7 10.0-20.0 Serum Glucose 153 H 74-106 mg/dL Lactic Acid Level 1.2 0.4-2.0 mmol/L Calcium Level 10.1 8.7-10.4 mg/dL Total Bilirubin 0.6 0.2-1.0 mg/dL Aspartate Amino Transferase (AST) 28 13-40 U/L Alanine Aminotransferase (ALT) 23 7-40 U/L Alkaline Phosphatase 60 46-116 U/L Creatine Kinase 186 H 34-145 U/L Total Protein 7.5 5.7-8.2 g/dL Albumin 4.6 3.2-4.8 g/dL PATIENT: MALLORY JI ACCT: [id number] UNIT: [id number] : 1950 LOC: ER ROOM / BED: / AGE / SEX: 73 / F ADM STATUS: REG ER SERVICE 1533 ORDERING PHYSICIAN: DERRICK TURNER DO PROCEDURE(s): UPEWO - UPPER EXTREMITY WO CONTRAST REASON: Left shoulder injury ORDER NUMBER(s): [id number], ACCESSION NUMBER(s): [id number] EXAM: CT UPPER EXTREMITY WO CONTRAST INDICATION: Left shoulder injury EXAM DATE: 03/09/2024 03:38 PM COMPARISON: None TECHNIQUE: Multiple axial CT images of the left shoulder were obtained using bone algorithm. Axial and coronal reformatting was done. Bone and soft tissue windows were reviewed. Radiation Dose Information: CT Dose: CTDI volume is 22.92 mGy. Dose-length product is 521.49 mGy*cm Findings/Impression: Anterior inferior dislocation of the left shoulder with comminuted fracture of the humeral head. There is no evidence of blastic or lytic lesions. No radiopaque foreign bodies. Small joint effusion. Mild soft tissue edema. Assessment/Plan Assessment/Plan Dislocation of left shoulder joint Shoulder fracture, left Contusion of left upper arm Generalized weakness Leukocytosis, unspecified Plan 1. Admit to telemetry unit 2. Breathing treatment 3. Pain control management 4. IV antibiotic management 5. Management of fluids and electrolytes 6. Consultation for orthopedic surgery 7. Diagnostic test left shoulder CT 8. DVT prophylaxis-on Lovenox 9. Repeat labs CBC, CMP in a.m. 10. Home medication reviewed and reconciled 11. Continue with current medical management 12. Treatment plan discussed with patient and RN. Patient verbalized understanding. Plan discussed with: Patient, Other (RN) My Orders Orders - ROSEMARY ABEL DNP Procedure Category Date Status Time Consistent DIET 03/10/24 Transmitted Carb(Ccho)Diabetes Breakfast Glucose Blood PHA 03/09/24 In Process (Accu-Chek Comfort 22:00 Insulin R (Human) PHA 03/09/24 In Process (Insulin R) 22:00 Insulin R (Human) PHA 03/10/24 In Process (Insulin R) 07:00 Dextrose 50% Syringe PHA 03/09/24 In Process 20:45 Allergies BARBARA 03/09/24 In Process 20:45 Code Status CODE 03/09/24 Transmitted 20:45 Sodium Chloride 0.9% PHA 03/09/24 In Process 20:45 Oxygen Per Hour RT 03/09/24 Transmitted 20:45 Hydrocodone-Acet PHA 03/09/24 In Process 5/325mg Tab (Lerna 20:45 Ondansetron Hcl PHA 03/09/24 In Process (Zofran) 20:45 Docusate Sodium PHA 03/09/24 In Process Capsule (Colace 20:45 Enoxaparin Sodium PHA 03/10/24 In Process (Lovenox) 10:00 Fall Risk Precautions BARBARA 03/09/[address] 20:45 Complete Blood Count LAB 03/10/24 Verified 04:00 Comprehensive LAB 03/10/24 Verified Metabolic Panel 04:00 Condition: Serious BARBARA 03/09/24 In Process 20:45 Acetaminophen Tablet PHA 03/09/24 In Process (Tylenol Tablet) 20:45 Sequential BARBARA 03/09/24 In Process Compression Device Ceftriaxone 1gm/50ml PHA 03/10/24 In Process D5w (Rocephin) 09:00 Admit ADMIT 03/09/24 Verified 22:35 Nitroglycerin PHA 03/09/24 Verified Sublingual (Ntrostat 22:45 Morphine Sulfate PHA 03/09/24 Verified Injection 22:45 Notify Of Changes BARBARA 03/09/24 Verified From Base 22:35 Child Nurse For BARBARA 03/09/24 Verified 24 Hours 22:35 Emergency Dysrhythmia BARBARA 03/09/24 Verified Protocol 22:35 Rhythm Strips Once BARBARA 03/09/24 Verified Every Shift 22:35 Oxygen By Nasal RT 03/09/24 Verified Cannula 22:35 Problem List: (1) Dislocation of left shoulder joint (2) Shoulder fracture, left (3) Contusion of left upper arm (4) Generalized weakness (5) Leukocytosis, unspecified Date of Service: Mar 09, 2024 Billing Provider: ROSEMARY ABEL DNP Common Visit Codes: 40314-[id number] INP/OBS CARE (HIGH) ROSEMARY ABEL DNP Mar 09, 2024 22:37
[2024-03-09] MEDS ORDERED: NITROGLYCERIN 0.4 MG SL TAB SL PRN (22:45)
[2024-03-09] MEDS ORDERED: MORPHINE SULFATE INJ 2 MG/ml SYRG IV PRN (22:45)
[2024-03-09] MEDS: InsuLIN REG 1unit/0.01ml Soln (100units/ml) SC SCH (23:02)
[2024-03-10 01:01] VITALS: PULSE 87; RESP 18; O2SAT 97
[2024-03-10] MEDS: InsuLIN REG 1unit/0.01ml Soln (100units/ml) SC SCH (06:46)
[2024-03-10 07:02] LABS: Basophils # (auto) 0 10 ^3/uL (0-0.2); Basophils % (auto) 0.3 % (0.0-2.0); Eosinophils # (auto) 0.2 10 ^3/uL (0-0.8); Eosinophils % (auto) 2.1 % (0.0-7.0); Hematocrit 28.7 % (36.0-46.0); Hemoglobin 9.4 g/dL (12.2-16.2); Lymphocytes # (auto) 4.1 10 ^3/uL (0.4-5.4); Lymphocytes % (auto) 46.5 % (10.0-50.0); Mean Corpuscular Hemoglobin 27.2 pg (28.0-32.0); Mean Corpuscular Hgb Conc. 32.8 g/dL (32.0-36.0); Mean Corpuscular Volume 83.1 fL (80.0-100.0); Monocytes # (auto) 0.6 10 ^3/uL (0-1.3); Monocytes % (auto) 6.3 % (0.0-12.0); Neutrophils # (auto) 3.9 10 ^3/uL (1.6-8.6); Neutrophils % (auto) 44.8 % (37.0-80.0); Platelet Count (auto) 199 10^3/uL (140-450); Red Blood Cells 3.46 10^6/uL (4.0-5.20); Red Cell Distribution Width 17.1 % (11.8-14.3); White Blood Cell 8.8 10^3/uL (4.4-10.8)
[2024-03-10 07:44] LABS: Alanine Aminotransferase 22 U/L (7-40); Albumin 3.9 g/dL (3.2-4.8); Alkaline Phosphatase 49 U/L (46-116); Anion Gap 7 (5-15); Aspartate Aminotransferase 42 U/L (13-40); BUN/Creatinine Ratio 13.5 (10.0-20.0); Bilirubin, Total 0.6 mg/dL (0.2-1.0); Blood Urea Nitrogen 7 mg/dL (9-23); Carbon Dioxide 27 mmol/L (20-31); Chloride 107 mmol/L (98-107); Glucose 158 mg/dL (74-106); Potassium 3.3 mmol/L (3.5-5.1); Sodium 141 mmol/L (136-145); Total Protein 6.5 g/dL (5.7-8.2)
[2024-03-10] MEDS: cefTRIAXone 1GM/50ML D5W 50 ML IV SCH (09:29)
[2024-03-10] MEDS: ENOXAPARIN SOD 40 MG/0.4 ML SYRINGE SC SCH (10:54)
[2024-03-10 11:09] VITALS: PULSE 76; RESP 14; O2SAT 95
[2024-03-10] MEDS ORDERED: POTASSIUM EFFERVESENT TAB 25 MEQ GT ONE (11:15)
[2024-03-10 11:19] LABS: Urine Bacteria None Seen /hpf (None Seen)
[2024-03-10 11:32] LABS: Urine Blood TRACE /uL (Negative); Urine Clarity Turbid (Clear); Urine Color Colorless (Yellow); Urine Mucus FEW (None Seen); Urine Protein, UAD TRACE (Negative); Urine Specific Gravity 1.014 (1.001-1.035); Urine Squamous Epithelial Cell MOD /hpf (<5); Urine Urobilinogen Normal (Negative); Urine WBC 733 /hpf (0 - 5); Urine pH 5.5 (5.0-9.0)
[2024-03-10 11:40] LABS: INR 1.09 (0.9-1.15); Prothrombin Time 11.5 sec (9.3-11.8)
[2024-03-10 11:51] LABS: Benzodiazephine Screen, Urine Neg (NEGATIVE); Opiate Scree,Urine Pos (NEGATIVE)
[2024-03-10 11:52] LABS: Amphetamine Screen, Urine Neg (NEGATIVE); Barbiturate Scree,Urine Neg (NEGATIVE); Cannabinoid Screen, Urine Neg (NEGATIVE); Cocaine Screen, Urine Neg (NEGATIVE); Phencyclidine Screen, Urine Neg (NEGATIVE)
--- NOTE | 2024-03-10 11:56 | DVHPNRES ---
Progress Note Date Seen: Mar 10, 2024 Resident Creating Document: DELL WOOTEN RESIDENT Has the PT tested + for MRSA If YES, has PT been informed?: No Medical Necessity Reason Pt with a Central, PICC or Fol: No Objective vital signs Vital Sign Date Time Temp Pulse Resp B/P (MAP) Pulse Ox O2 Delivery O2 Flow Rate FiO2 03/10/24 11:09 76 14 95 Room Air* 0 21 03/10/24 06:42 119/62 (81) 03/10/24 00:54 98.7 98.7 medications Current Medications Medications Dose Ordered Sig/Cari Route Start Time Stop Time Status Last Admin Dose Admin Diagnostic Test (Pha) 1 strip ACHS 03/09/24 22:00 03/10/24 11:37 1 STRIP Insulin Human Regular HS SC 03/09/24 22:00 03/09/24 23:02 3 UNITS Insulin Human Regular AC SC 03/10/24 07:00 03/10/24 11:49 2 UNITS Dextrose 50 ml UD PRN IV 03/09/24 20:45 Sodium Chloride 1,000 ml @ 60 mls/hr [id number] IV 03/09/24 20:45 03/09/24 20:45 60 MLS/HR Acetaminophen/ Hydrocodone Bitart 1 tab Q4HP PRN PO 03/09/24 20:45 03/10/24 09:29 1 TAB Ondansetron HCl 4 mg Q4HP PRN IV 03/09/24 20:45 Docusate Sodium 100 mg BIDPRN PRN PO 03/09/24 20:45 Enoxaparin Sodium 40 mg DAILY SC 03/10/24 10:00 03/10/24 10:54 40 MG Acetaminophen 650 mg Q6HP PRN PO 03/09/24 20:45 Ceftriaxone Sodium 50 ml @ 100 mls/hr DAILY@09 IV 03/10/24 09:00 03/10/24 09:29 100 MLS/HR Nitroglycerin 0.4 mg Q5MINP PRN SL 03/09/24 22:45 Morphine Sulfate 2 mg Q30M PRN IV 03/09/24 22:45 Examination General Appearance: Alert, Oriented X3, Cooperative, No acute distress HEENT: Atraumatic, PERRLA, EOMI, Mucous membr. moist/pink Respiratory: Clear to auscultation, Normal air movement Cardiovascular: Regular rate, Normal S1, Normal S2, No murmurs Abdominal: Normal bowel sounds, Soft, No tenderness, No hepatospenomegaly, No masses Extremities: No clubbing, No cyanosis, No edema, Normal pulses, Other (Left shoulder tenderness) Skin: No rashes, No breakdown, No significant lesion Neuro: Normal speech, Normal tone, Sensation intact, Cranial nerves 3-12 NL, Reflexes 2+, Other (Generalized weakness) Psych/Mental Status: Mental status NL, Mood NL laboratory and microbiology Laboratory Tests 03/10/24 06:47 Test 03/10/24 06:47 Range/Units Serum Glucose 158 H 74-106 mg/dL Labs and/or images reviewed: Labs reviewed by me, Image(s) reviewed by me Problem List/Assessment/Plan Problem List/Assessment/Plan Hospitalization summary/ Assessment: A 73-year-old female with diabetes mellitus and insomnia presented to the ED after falling and injuring her left shoulder on March 06, 2024. She reported tripping while getting up to use the bathroom, resulting in left shoulder pain. A CT scan revealed an anterior inferior dislocation with a comminuted fracture of the humeral head, small joint effusion, and mild soft tissue edema. Lab results showed elevated WBC (11.2) and troponin (3), with other values within normal ranges. She was started on IV Rocephin and admitted for further evaluation and management. She denies smoking, alcohol, or drug use and lives at home. Patient is hemodynamically stable, initially tried at home ibuprofen did not help came to the ED for further evaluation. Plan: # Dislocation of left shoulder joint: Pain controlled, no neurovascular compromise, Consulted orthopedics. PT INR WNL, H&H stable, patient do have schedule surgery today around 12:00 p.m. # Leukocytosis likely Due to stress/UTI: Hemodynamically stable, afebrile continue IV ceftriaxone. # hypokalemia 3.3, corrected , recurrent hypokalemia corrected again. # elevated CK: Elevated CK 150, 688, IV fluid to continue trend CK>>> Trending down in 300s , renal function intact. # UTI , likely Gram-negative: Continue ceftriaxone check blood culture, urine culture. # Anxiety /insomnia: On trazodone 50 mg daily and sertraline 100 mg daily at nighttime. # Diabetes mellitus type 2: Ozempic and metformin at home. SSI in-hospital. # Microcytic anemia: Iron, FOBT, ferritin to follow up. Iron-deficiency anemia: # GERD: At home patient takes omeprazole 40 daily. oral pantoprazole to continue # COPD/asthma patient on Wixela , albuterol, and fluticasone. # back pain, DDD: Patient on home gabapentin 300 mg daily. # Osteoporosis: Patient on ibandronate: My 50 mg tablet # Seasonal allergic 1 cetirizine 10 mg daily , montelukast 10 mg daily. # dyslipidemia: atorvastatin 80 mg daily Diet: CC, NPO after midnight. GI prophylaxis: protonix 40mg Oral DVT prophylaxis: Levonox 40mg subcutaneous Bowel regimen: not needed Barriers to discharge: Medical diagnosis and managment in progress. Patient lives with self / family. Independent/need supportive device/wheelchair/person support for ADL. PT and SW consult as needed. PCP: Dr. Wilkinson Specialist Relevent To Admission: orthopedics, consulted. Patient care and plan discussed with Dr. Ambrose Disposition: Patient remains in Tele Plan discussed with: Patient, Spouse, Other (Primary team, RN) My Orders My Orders Orders - DELL WOOTEN Procedure Category Date Status Time Complete Blood Count LAB 03/11/24 Verified 04:00 Comprehensive LAB 03/11/24 Verified Metabolic Panel 04:00 Creatine Kinase LAB 03/10/24 In Process 11:09 Blood Alcohol LAB 03/10/24 In Process 11:10 Thyroid Stimulating LAB 03/10/24 In Process Hormone 11:10 Date of Service: Mar 10, 2024 Billing Provider: WANDA BRADSHAW MD Common Visit Codes: [id number] INP/OBS CARE(HIGH) DELL WOOTEN RESIDENT Mar 10, 2024 11:56 WANDA BRADSHAW MD Mar 13, 2024 09:23
[2024-03-10] MEDS: POTASSIUM EFFERVESENT TAB 25 MEQ PO ONE (13:47)
--- NOTE | 2024-03-10 15:50 | DVH ---
CHEST RADIOGRAPH Indication: CAD Technique: Single frontal view of the chest was obtained COMPARISON: XY CHEST PORTABLE on DOS: 03/04/23 FINDINGS: Lines and Tubes: None Lungs: Congestion Pleura: No effusion. No pneumothorax. Cardiomediastinal contours: Unremarkable Bones: Unremarkable IMPRESSION: Mild congestion
[2024-03-10] MEDS: PANTOPRAZOLE 40 MG TAB PO ONE (17:14)
[2024-03-10] MEDS: SODIUM CHLORIDE 0.9% 1,000 ML IV SCH (17:16)
[2024-03-10 20:00] VITALS: PULSE 77; RESP 17; O2SAT 94
[2024-03-11] MEDS: MORPHINE SULFATE INJ 2 MG/ml SYRG IV PRN (04:39)
[2024-03-11] MEDS: PANTOPRAZOLE 40 MG TAB PO SCH (06:00)
[2024-03-11 07:30] VITALS: PULSE 87; RESP 16; O2SAT 96
[2024-03-11 07:40] LABS: Alanine Aminotransferase 20 U/L (7-40); Albumin 3.9 g/dL (3.2-4.8); Alkaline Phosphatase 52 U/L (46-116); Anion Gap 8 (5-15); Aspartate Aminotransferase 36 U/L (13-40); Carbon Dioxide 26 mmol/L (20-31); Chloride 106 mmol/L (98-107); Sodium 140 mmol/L (136-145)
[2024-03-11 07:41] LABS: Bilirubin, Total 0.7 mg/dL (0.2-1.0); Total Protein 6.5 g/dL (5.7-8.2)
[2024-03-11 07:50] LABS: BUN/Creatinine Ratio 11.6 (10.0-20.0); Blood Urea Nitrogen < 5 mg/dL (9-23); Creatine Kinase IFCC 351 U/L (34-145); Glucose 136 mg/dL (74-106); Potassium 3.4 mmol/L (3.5-5.1)
[2024-03-11 08:34] LABS: Basophils # (auto) 0 10 ^3/uL (0-0.2); Basophils % (auto) 0.2 % (0.0-2.0); Eosinophils # (auto) 0.2 10 ^3/uL (0-0.8); Hematocrit 28.6 % (36.0-46.0); Hemoglobin 9.4 g/dL (12.2-16.2); Lymphocytes # (auto) 2.7 10 ^3/uL (0.4-5.4); Lymphocytes % (auto) 32.7 % (10.0-50.0); Mean Corpuscular Volume 81.8 fL (80.0-100.0); Monocytes # (auto) 0.6 10 ^3/uL (0-1.3); Monocytes % (auto) 7.2 % (0.0-12.0); Neutrophils # (auto) 4.8 10 ^3/uL (1.6-8.6); Neutrophils % (auto) 57.9 % (37.0-80.0); Platelet Count (auto) 211 10^3/uL (140-450); Red Blood Cells 3.49 10^6/uL (4.0-5.20); Red Cell Distribution Width 17.3 % (11.8-14.3); White Blood Cell 8.4 10^3/uL (4.4-10.8)
[2024-03-11] MEDS ORDERED: GABA-1250 PO (08:40)
[2024-03-11] MEDS ORDERED: ATOR-47 PO (08:40)
[2024-03-11] MEDS ORDERED: SERT-160 PO (08:40)
[2024-03-11] MEDS ORDERED: TRAZ-227 PO (08:40)
[2024-03-11] MEDS ORDERED: CETI-120 PO (08:40)
[2024-03-11] MEDS ORDERED: DOCUSATE SOD 100 MG CAP PO PRN ×2 (08:45→15:15)
[2024-03-11] MEDS: POTASSIUM EFFERVESENT TAB 25 MEQ PO ONE (08:45)
[2024-03-11] MEDS ORDERED: ALBU108A5 INH (08:53)
--- NOTE | 2024-03-11 09:29 | DVHPNRES ---
Progress Note Date Seen: Mar 11, 2024 Resident Creating Document: DELL WOOTEN RESIDENT Has the PT tested + for MRSA If YES, has PT been informed?: No Medical Necessity Reason Pt with a Central, PICC or Fol: No Subjective Review of Systems Patient is on a low-cholesterol, IV antibiotics continued for a UTI, patient remained NPO, spoke to Dr. Mireles. Tentative time of surgical management 12:00 p.m. today. Patient reports: No new complaints Changes from previous H/P or p: No Changes Objective vital signs Vital Sign Date Time Temp Pulse Resp B/P (MAP) Pulse Ox O2 Delivery O2 Flow Rate FiO2 03/11/24 05:52 99.1 81 17 153/80 (104) 95 99.1 03/10/24 20:00 Room Air* 0 21 Total Intake and Output 03/10/24 03/10/24 03/11/24 15:00 23:00 07:00 Intake Total 160 ml 220 ml Balance 160 ml 220 ml medications Current Medications Medications Dose Ordered Sig/Cari Route Start Time Stop Time Status Last Admin Dose Admin Diagnostic Test (Pha) 1 strip ACHS 03/09/24 22:00 03/11/24 06:13 1 STRIP Insulin Human Regular HS SC 03/09/24 22:00 03/10/24 21:37 3 UNITS Insulin Human Regular AC SC 03/10/24 07:00 03/10/24 11:49 2 UNITS Dextrose 50 ml UD PRN IV 03/09/24 20:45 Acetaminophen/ Hydrocodone Bitart 1 tab Q4HP PRN PO 03/09/24 20:45 03/10/24 21:25 1 TAB Ondansetron HCl 4 mg Q4HP PRN IV 03/09/24 20:45 Docusate Sodium 100 mg BIDPRN PRN PO 03/09/24 20:45 Enoxaparin Sodium 40 mg DAILY SC 03/10/24 10:00 03/10/24 10:54 40 MG Acetaminophen 650 mg Q6HP PRN PO 03/09/24 20:45 Ceftriaxone Sodium 50 ml @ 100 mls/hr DAILY@09 IV 03/10/24 09:00 03/10/24 09:29 100 MLS/HR Nitroglycerin 0.4 mg Q5MINP PRN SL 03/09/24 22:45 Morphine Sulfate 2 mg Q30M PRN IV 03/09/24 22:45 Sodium Chloride 1,000 ml @ 100 mls/hr Q10H IV 03/10/24 16:30 03/11/24 02:59 100 MLS/HR Pantoprazole Sodium 40 mg DAILY@0600 PO 03/11/24 06:00 Morphine Sulfate 2 mg Q6HPRN PRN IV 03/11/24 03:45 03/11/24 04:39 2 MG Lidocaine 1 patch DAILY TOP 03/11/24 10:00 Docusate Sodium 100 mg BIDPRN PRN PO 03/11/24 08:45 UNV Examination General Appearance: Alert, Oriented X3, Cooperative, No acute distress HEENT: Atraumatic, PERRLA, EOMI, Mucous membr. moist/pink Respiratory: Clear to auscultation, Normal air movement Cardiovascular: Regular rate, Normal S1, Normal S2, No murmurs Abdominal: Normal bowel sounds, Soft, No tenderness, No hepatospenomegaly, No masses Extremities: No clubbing, No cyanosis, No edema, Normal pulses, Other (, deformity Left shoulder tenderness) Skin: No rashes, No breakdown, No significant lesion Neuro: Normal speech, Normal tone, Sensation intact, Cranial nerves 3-12 NL, Reflexes 2+, Other (Generalized weakness) Psych/Mental Status: Mental status NL, Mood NL laboratory and microbiology Laboratory Tests 03/11/24 06:59 Test 03/11/24 06:59 Range/Units Serum Glucose 136 H 74-106 mg/dL Labs and/or images reviewed: Labs reviewed by me, Image(s) reviewed by me Problem List/Assessment/Plan Problem List/Assessment/Plan Hospitalization summary/ Assessment: A 73-year-old female with diabetes mellitus and insomnia presented to the ED after falling and injuring her left shoulder on March 06, 2024. She reported tripping while getting up to use the bathroom, resulting in left shoulder pain. A CT scan revealed an anterior inferior dislocation with a comminuted fracture of the humeral head, small joint effusion, and mild soft tissue edema. Lab results showed elevated WBC (11.2) and troponin (3), with other values within normal ranges. She was started on IV Rocephin and admitted for further evaluation and management. She denies smoking, alcohol, or drug use and lives at home. Patient is hemodynamically stable, initially tried at home ibuprofen did not help came to the ED for further evaluation. Surgery rescheduled for tomorrow. Plan for left reverse total shoulder arthroplasty with Dr. Gutiérrez on 03/12/2024, time TBD based on OR schedule. Plan: # Dislocation of left shoulder joint: Pain controlled, no neurovascular compromise, Consulted orthopedics. PT INR WNL, H&H stable, . # Leukocytosis likely Due to stress/UTI: Hemodynamically stable, afebrile continue IV ceftriaxone. # hypokalemia 3.3, corrected , recurrent hypokalemia corrected again. # elevated CK: Elevated CK 150, 688, IV fluid to continue trend CK>>> Trending down in 300s , renal function intact. # UTI , likely Gram-negative: Continue ceftriaxone check blood culture, urine culture. # Anxiety /insomnia: On trazodone 50 mg daily and sertraline 100 mg daily at nighttime. # Diabetes mellitus type 2: Ozempic and metformin at home. SSI in-hospital. # Microcytic anemia: Iron, FOBT, ferritin to follow up. Iron-deficiency anemia: # GERD: At home patient takes omeprazole 40 daily. oral pantoprazole to continue # COPD/asthma patient on Wixela , albuterol, and fluticasone. # back pain, DDD: Patient on home gabapentin 300 mg daily. # Osteoporosis: Patient on ibandronate: My 50 mg tablet # Seasonal allergic 1 cetirizine 10 mg daily , montelukast 10 mg daily. # dyslipidemia: atorvastatin 80 mg daily Preoperative clearance: Roberts perioperative risk score: 0.2% risk of myocardial infarction or cardiac arrest intraoperatively or up to 30 days postop. Modified RCRI: 0 score, 3.9% risk of major cardiac event. 12 lead EKG: unremarkable, telemetry overnight unremarkable. Diet: CC cardiac diet, NPO after midnight. GI prophylaxis: protonix 40mg Oral DVT prophylaxis: Lovenox 40mg subcutaneous Bowel regimen: Colace b.i.d. p.r.n. as patient is on pain opioids Barriers to discharge: Medical diagnosis and management in progress. Patient lives with / family. Independent for ADL. PCP: Dr. Wilkinson Specialist Relevant To Admission: orthopedics, consulted. Care discussion needed 37 minutes total time at bedside. Patient care and plan discussed with Dr. Aziz Plan discussed with: Patient, Spouse, Other My Orders My Orders Orders - DELL WOOTEN Procedure Category Date Status Time Sodium Chloride 0.9% PHA 03/10/24 In Process 16:30 Pantoprazole Tablet PHA 03/11/24 In Process (Protonix Tablet) 06:00 Lidocaine 5% Topical PHA 03/11/24 In Process Patch (Lidoderm 5% 10:00 Docusate Sodium PHA 03/11/24 Logged Capsule (Colace 08:45 Stool Occult Blood LAB 03/11/24 Logged 09:00 Iron Panel LAB 03/11/24 Logged 09:00 Ferritin LAB 03/11/24 Logged 09:00 Record Ekg BARBARA 03/11/24 In Process 09:15 Electrocardigram EKG 03/11/24 Logged 09:15 Date of Service: Mar 11, 2024 Billing Provider: WANDA BRADSHAW MD Common Visit Codes: [id number] INP/OBS CARE(HIGH) DELL WOOTEN RESIDENT Mar 11, 2024 09:29 WANDA BRADSHAW MD Mar 13, 2024 09:27
[2024-03-11] MEDS: LIDOCAINE 5% TOPICAL PATCH TOP SCH (10:00)
[2024-03-11 10:45] LABS: COVID19 ANTIGEN SOFIA FIA NEGATIVE (NEGATIVE); Rapid Influenza A Negative (Negative); Rapid Influenza B Negative (Negative)
[2024-03-11 10:50] LABS: % Iron Saturation 11.9 % (15-50)
[2024-03-11 14:48] LABS: Urine Bacteria None Seen /hpf (None Seen)
--- NOTE | 2024-03-11 14:55 | DVHINCON2 ---
Date of service: Mar 11, 2024 Reason for Consultation left shoulder pain History of Present Illness Patient is a pleasant 73 year old female who presented to [facility] ED s/p fall. On 03/06/2024 patient got up to use the bathroom when she tripped and fell landing primarily on her left shoulder. Attempted to treat conservatively however pain became worse at at that time patient presented to ER for further evaluation. Left shoulder CT was done showing anterior inferior dislocation of the left shoulder with comminuted fracture of the humeral head. Patient denies any chest pain, loss of consciousness, numbness or tingling. Past Medical History DM, depression, insomnia Allergies: Coded Allergies: NO KNOWN ALLERGIES (Unverified , 03/04/23) Home Meds Reported Medications Albuterol Sulfate (Albuterol Sulfate Hfa) 108 Mcg/Act Aer, INH 03/11/24 Atorvastatin Calcium (ATORVASTATIN CALCIUM) 80 Mg Tab, 1 TAB PO DAILY 03/11/24 Trazodone Hcl (Trazodone Hcl) 50 Mg Tab, 1 TAB PO 03/11/24 Sertraline Hcl (Sertraline Hcl) 100 Mg Tab, 1 TAB PO DAILY 03/11/24 Gabapentin (Gabapentin) 300 Mg Cap, 1 CAP PO DAILY 03/11/24 Cetirizine HCl (Cetirizine Hydrochloride) 10 Mg Tab, 1 TAB PO DAILY 03/11/24 Trazodone Hcl (Trazodone Hcl) 100 Mg Tab, 50 MG PO QPM, TAB 11/17/23 Montelukast Sodium (MONTELUKAST SODIUM) 10 Mg Tab, 10 MG OR DAILY, TAB 11/17/23 Semaglutide (Ozempic) 2 Mg/3 Ml Inj, 2 MG SC QWEEKLY, INJ 11/17/23 Metformin Hydrochloride (Metformin Hcl) 1,000 Mg Tab, 1000 MG PO BID, TAB 11/17/23 Sertraline Hcl (Sertraline Hcl) Unknown Strength Tab, PO DAILY, TAB 11/17/23 Current Medications Current Medications Medications (Trade) Dose Ordered Sig/Cari Route PRN Reason Start Time Stop Time Status Last Admin Sodium Chloride 1,000 ml @ 100 mls/hr Q10H IV 03/10/24 16:30 03/11/24 12:34 Pantoprazole Sodium (Protonix Tablet) 40 mg DAILY@0600 PO 03/11/24 06:00 Morphine Sulfate 2 mg Q6HPRN PRN IV SEVERE PAIN (7-10 PAIN SCALE) 03/11/24 03:45 03/11/24 13:09 Lidocaine (Lidoderm 5% Topical Patch) 1 patch DAILY TOP 03/11/24 10:00 03/11/24 10:00 Docusate Sodium (Colace Capsule) 100 mg BIDPRN PRN PO FOR CONSTIPATION 03/11/24 08:45 Review of Systems 10 point ROS otherwise negative as per HPI Vital Signs Vital Signs Date Time Temp Pulse Resp B/P (MAP) Pulse Ox O2 Delivery O2 Flow Rate FiO2 03/11/24 14:00 77 14 134/73 (93) 98 03/11/24 07:30 Room Air* 0 21 03/11/24 05:52 99.1 99.1 Physical Exam Gen: NAD while in bed however signs of severe pain to the left shoulder with movement Skin: no abnormal bruising or skin lesions HEENT: NCAT, PERRLA Neuro: alert and oriented x 3 Resp: no labored breathing Cardiac: no cyanosis Abd: soft, round, non-tender Msk: limited exam to left shoulder due to pain + ecchymosis and swelling Sensation intact to light touch across median, ulnar or radial nerve distribution cap refill less than 2 seconds Labs/Diagnostic Data Labs Test 03/11/24 08:32 03/11/24 06:59 03/10/24 10:44 03/10/24 06:47 Range/Units Influenza Type A Antigen Negative Negative Influenza Type B Antigen Negative Negative SARS-CoV-2 Antigen (Rapid) Negative NEGATIVE White Blood Count 8.4 4.4-10.8 10^3/uL Red Blood Count 3.49 L 4.0-5.20 10^6/uL Hemoglobin 9.4 L 12.2-16.2 g/dL Hematocrit 28.6 L 36.0-46.0 % Mean Corpuscular Volume 81.8 80.0-100.0 fL Mean Corpuscular Hemoglobin 27.0 L 28.0-32.0 pg Mean Corpuscular Hemoglobin Concent 33.0 32.0-36.0 g/dL Red Cell Distribution Width 17.3 H 11.8-14.3 % Platelet Count 211 140-450 10^3/uL Mean Platelet Volume 8.1 6.9-10.8 fL Neutrophils (%) (Auto) 57.9 37.0-80.0 % Lymphocytes (%) (Auto) 32.7 10.0-50.0 % Monocytes (%) (Auto) 7.2 0.0-12.0 % Eosinophils (%) (Auto) 2.0 0.0-7.0 % Basophils (%) (Auto) 0.2 0.0-2.0 % Neutrophils # (Auto) 4.8 1.6-8.6 10 ^3/uL Lymphocytes # (Auto) 2.7 0.4-5.4 10 ^3/uL Monocytes # (Auto) 0.6 0-1.3 10 ^3/uL Eosinophils # (Auto) 0.2 0-0.8 10 ^3/uL Basophils # (Auto) 0 0-0.2 10 ^3/uL Nucleated Red Blood Cells 0.0 % Sodium Level 140 136-145 mmol/L Potassium Level 3.4 L 3.5-5.1 mmol/L Chloride Level 106 98-107 mmol/L Carbon Dioxide Level 26 20-31 mmol/L Anion Gap 8 5-15 Blood Urea Nitrogen < 5 L 9-23 mg/dL Creatinine 0.43 L 0.550-1.02 mg/dL Glomerular Filtration Rate Calc 104 >90 mL/min BUN/Creatinine Ratio 11.6 10.0-20.0 Serum Glucose 136 H 74-106 mg/dL Calcium Level 9.0 8.7-10.4 mg/dL Iron Level 39 L 50-170 ug/dL Total Iron Binding Capacity 329 250-425 ug/dL Percent Iron Saturation 11.9 L 15-50 % Ferritin 24.4 10-291 ng/mL Total Bilirubin 0.7 0.2-1.0 mg/dL Aspartate Amino Transferase (AST) 36 13-40 U/L Alanine Aminotransferase (ALT) 20 7-40 U/L Alkaline Phosphatase 52 46-116 U/L Creatine Kinase 351 H 34-145 U/L Total Protein 6.5 5.7-8.2 g/dL Albumin 3.9 3.2-4.8 g/dL Urine Color Colorless Yellow Urine Clarity Turbid H Clear Urine pH 5.5 5.0-9.0 Urine Specific [place] 1.014 1.001-1.035 Urine Protein Trace H Negative Urine Ketones Negative Negative Urine Blood Trace H Negative /uL Urine Nitrite Negative Negative Urine Bilirubin Negative Negative Urine Urobilinogen Normal Negative mg/dL Urine Leukocyte Esterase 3+ Negative /uL Urine RBC 13 0 - 4 /hpf Urine WBC 733 0 - 5 /hpf Urine Squamous Epithelial Cells Mod <5 /hpf Urine Bacteria None seen None Seen /hpf Urine Mucus Few None Seen Urine Glucose 1+ H Normal mg/dL Urine Opiates Screen Pos NEGATIVE Urine Fentanyl Screen Neg NEGATIVE Urine Barbiturates Screen Neg NEGATIVE Urine Phencyclidine Screen Neg NEGATIVE Urine Amphetamines Screen Neg NEGATIVE Urine Benzodiazepines Screen Neg NEGATIVE Urine Cocaine Screen Neg NEGATIVE Urine Cannabinoids Screen Neg NEGATIVE Prothrombin Time 11.5 9.3-11.8 sec Prothrombin Time INR 1.09 0.9-1.15 Thyroid Stimulating Hormone (TSH) 2.71 0.55-4.78 uIU/mL Plasma/Serum Blood Alcohol < 3.0 <10 mg/dL Test 03/09/24 17:26 03/09/24 14:25 Range/Units Troponin I High Sensitivity < 3 L </=34 ng/L Lactic Acid Level 1.2 0.4-2.0 mmol/L Assessment left humeral fracture Plan/Recommendation 1. Lengthy discussion held at the bedside with the patient and Dr. Mireles regarding the current condition. She is aware that surgery is indicated for the present fracture. Risks, benefits, alternatives discussed at length with the patient including but not limited to hardware failure, non-union, chronic pain, loss of motion, nerve injury, stroke, DVT and . Patient accepts and risks and would like to proceed with plan for surgery. 2. Plan for left reverse total shoulder arthroplasty with Dr. Gutiérrez on 03/12/2024, time TBD based on OR schedule 3. NWB LUE 4. Pain control 5. Obtain consents and surgical checklist 6. NPO after midnight Plan discussed with: Patient SARAH KENNY THERAPEUTIC SPECIALIST Mar 11, 2024 14:55
[2024-03-11 15:07] LABS: Urine Blood Negative /uL (Negative); Urine Clarity Clear (Clear); Urine Color Light-Yellow (Yellow); Urine Protein, UAD Negative (Negative); Urine Specific Gravity 1.008 (1.001-1.035); Urine Squamous Epithelial Cell FEW /hpf (<5); Urine Urobilinogen Normal (Negative); Urine WBC 3 /hpf (0 - 5); Urine pH 6.5 (5.0-9.0)
[2024-03-11] MEDS ORDERED: ALBUTEROL SULF 2.5 MG/0.5ML(0.5%) NEB SOLN NEB PRN (15:15)
[2024-03-11] MEDS: GABAPENTIN 300 MG CAP PO ONE (16:07)
[2024-03-11 18:38] VITALS: BP 150/78; PULSE 82; RESP 16; TEMP 98.9; O2SAT 96
[2024-03-11 19:00] VITALS: BP 150/78; PULSE 82; PULSE 85; RESP 16; TEMP 98.9; O2SAT 96
[2024-03-11] MEDS ORDERED: SERT-206 PO (19:18)
[2024-03-11 20:00] VITALS: PULSE 95
[2024-03-11 21:00] VITALS: BP 135/72; PULSE 87; RESP 17; TEMP 98.9; O2SAT 94
[2024-03-11] MEDS: ATORVASTATIN 20 MG TAB PO SCH (21:02)
[2024-03-11] MEDS: HYDROcodone-ACET 7.5/325MG TAB PO PRN (21:02)
[2024-03-11] MEDS: traZODone HCL 50 MG TAB PO SCH (23:11)
[2024-03-12] VITALS (8 sets, daily range): BP systolic 127–148; BP diastolic 63–85; PULSE 77–106; RESP 16–18; TEMP 97.8–100.4; O2SAT 91–100
[2024-03-12 07:29] LABS: Basophils # (auto) 0 10 ^3/uL (0-0.2); Basophils % (auto) 0.3 % (0.0-2.0); Eosinophils # (auto) 0.2 10 ^3/uL (0-0.8); Eosinophils % (auto) 2.9 % (0.0-7.0); Hematocrit 30.2 % (36.0-46.0); Hemoglobin 9.8 g/dL (12.2-16.2); Lymphocytes # (auto) 2.1 10 ^3/uL (0.4-5.4); Lymphocytes % (auto) 30.9 % (10.0-50.0); Mean Corpuscular Hgb Conc. 32.5 g/dL (32.0-36.0); Mean Corpuscular Volume 83.1 fL (80.0-100.0); Monocytes # (auto) 0.6 10 ^3/uL (0-1.3); Monocytes % (auto) 9.2 % (0.0-12.0); Neutrophils # (auto) 3.9 10 ^3/uL (1.6-8.6); Neutrophils % (auto) 56.7 % (37.0-80.0); Nucleated Red Blood Cells % 0.1 %; Platelet Count (auto) 221 10^3/uL (140-450); Red Blood Cells 3.63 10^6/uL (4.0-5.20); Red Cell Distribution Width 17.8 % (11.8-14.3); White Blood Cell 6.9 10^3/uL (4.4-10.8)
[2024-03-12 07:47] LABS: Sodium 143 mmol/L (136-145)
[2024-03-12 07:55] LABS: Calcium 9.3 mg/dL (8.7-10.4)
[2024-03-12 07:56] LABS: Carbon Dioxide 25 mmol/L (20-31)
[2024-03-12 07:58] LABS: Anion Gap 11 (5-15); Chloride 107 mmol/L (98-107); Potassium 2.8 mmol/L (3.5-5.1)
[2024-03-12 08:01] LABS: BUN/Creatinine Ratio 15.2 (10.0-20.0)
[2024-03-12 08:03] LABS: Creatine Kinase IFCC 165 U/L (34-145)
[2024-03-12 08:09] LABS: Blood Urea Nitrogen 7 mg/dL (9-23); Glucose 154 mg/dL (74-106)
[2024-03-12] MEDS ORDERED: MIDAZOLAM HCL 2MG/2ML 2ml VIAL (1mg/ml) ONE (08:33)
[2024-03-12] MEDS ORDERED: LIDOCAINE 1% INJ PF 5ML AMP ONE (08:33)
[2024-03-12] MEDS ORDERED: SODIUM CHLORIDE LOCK 10 ML ONE (08:33)
[2024-03-12] MEDS ORDERED: DexAMETHasone SOD PHOS 10MG/1ML VIAL INJ ONE (08:33)
[2024-03-12] MEDS ORDERED: MEPERIDINE HCL (25 MG/ML) 1ML VIAL ONE (08:33)
[2024-03-12] MEDS ORDERED: LIDOCAINE HCL 2% TOP JELLY 5ML TOP ONE (08:33)
[2024-03-12] MEDS ORDERED: fentaNYL CITRATE 100 MCG/2 ML VL ONE (08:33)
[2024-03-12] MEDS ORDERED: KETAMINE 50mg/ML 1ml syringe ONE (08:33)
[2024-03-12] MEDS ORDERED: ONDANSETRON HCL 4 MG/2 ML VIAL ONE (08:33)
[2024-03-12] MEDS ORDERED: ROCURONIUM 10MG/ML 10ML VIAL IV ONE (08:33)
[2024-03-12] MEDS ORDERED: PROPOFOL 10 MG/ML 20 ML IV ONE (08:33)
[2024-03-12] MEDS ORDERED: SODIUM CHLORIDE LOCK 40 ML ONE (08:35)
[2024-03-12] MEDS ORDERED: KETOROLAC TROMETH 30 MG/ML 1ML VIAL ONE (09:26)
[2024-03-12] MEDS ORDERED: MORPHINE SULF PF 5 MG/10 ML VIAL ONE (09:26)
[2024-03-12] MEDS: ceFAZolin 2 GM/D5W100ml 100 ML IV ONE (09:32)
[2024-03-12] MEDS: ACCU-CHEK COMFORT CURVE STRIP VI ONE (09:45)
[2024-03-12] MEDS ORDERED: fentaNYL CITRATE 100 MCG/2 ML VL IV PRN (09:45)
[2024-03-12] MEDS ORDERED: HYDROmorphone HCL 2 MG/ML VL/or syr IV PRN ×3 (09:45)
[2024-03-12] MEDS ORDERED: MORPHINE SULFATE INJ 2 MG/ml SYRG IV PRN (09:45)
[2024-03-12] MEDS: GABAPENTIN 300 MG CAP PO SCH (10:00)
[2024-03-12] MEDS: SERTRALINE HCL 50 MG TAB PO SCH (10:00)
--- NOTE | 2024-03-12 11:54 | DVHPNRES ---
Progress Note Date Seen: Mar 12, 2024 Resident Creating Document: WANDA BRADSHAW MD Has the PT tested + for MRSA If YES, has PT been informed?: No Medical Necessity Reason Pt with a Central, PICC or Fol: No Subjective Review of Systems Postsurgical patient is stable and recovering from surgery. Patient reports: No new complaints Objective vital signs Vital Sign Date Time Temp Pulse Resp B/P (MAP) Pulse Ox O2 Delivery O2 Flow Rate FiO2 03/12/24 08:52 98.5 77 16 138/67 (90) 93 98.5 03/11/24 20:00 Room Air* 0 21 Total Intake and Output 03/11/24 03/11/24 03/12/24 15:00 23:00 07:00 Intake Total 650 ml 0 ml Balance 650 ml 0 ml medications Current Medications Medications Dose Ordered Sig/Cari Route Start Time Stop Time Status Last Admin Dose Admin Diagnostic Test (Pha) 1 strip ACHS 03/09/24 22:00 03/12/24 05:45 1 STRIP Insulin Human Regular HS SC 03/09/24 22:00 03/11/24 21:18 3 UNITS Insulin Human Regular AC SC 03/10/24 07:00 03/10/24 11:49 2 UNITS Dextrose 50 ml UD PRN IV 03/09/24 20:45 Ondansetron HCl 4 mg Q4HP PRN IV 03/09/24 20:45 Enoxaparin Sodium 40 mg DAILY SC 03/10/24 10:00 03/11/24 10:00 40 MG Acetaminophen 650 mg Q6HP PRN PO 03/09/24 20:45 Ceftriaxone Sodium 50 ml @ 100 mls/hr DAILY@09 IV 03/10/24 09:00 03/11/24 09:00 100 MLS/HR Nitroglycerin 0.4 mg Q5MINP PRN SL 03/09/24 22:45 Morphine Sulfate 2 mg Q30M PRN IV 03/09/24 22:45 Sodium Chloride 1,000 ml @ 100 mls/hr Q10H IV 03/10/24 16:30 03/12/24 08:30 100 MLS/HR Pantoprazole Sodium 40 mg DAILY@0600 PO 03/11/24 06:00 Morphine Sulfate 2 mg Q6HPRN PRN IV 03/11/24 03:45 03/11/24 13:09 2 MG Lidocaine 1 patch DAILY TOP 03/11/24 10:00 03/11/24 10:00 1 PATCH Docusate Sodium 100 mg BIDPRN PRN PO 03/11/24 08:45 Cancel Trazodone HCl 75 mg HS PO 03/11/24 22:00 03/11/24 23:11 75 MG Sertraline HCl 100 mg DAILY PO 03/12/24 10:00 Docusate Sodium 100 mg BIDPRN PRN PO 03/11/24 15:15 Gabapentin 300 mg DAILY PO 03/12/24 10:00 Atorvastatin Calcium 80 mg HS PO 03/11/24 22:00 03/11/24 21:02 80 MG Albuterol 1.25 mg Q4HPRN PRN NEB 03/11/24 15:15 Cancel Acetaminophen/ Hydrocodone Bitart 1 tab Q4HP PRN PO 03/11/24 16:00 03/11/24 21:02 1 TAB Potassium Chloride 100 ml @ 50 mls/hr Q2H IV 03/12/24 09:30 03/12/24 13:29 Examination General Appearance: Alert, Oriented X3, Cooperative, No acute distress HEENT: Atraumatic, PERRLA, EOMI, Mucous membrane. moist/pink Respiratory: Clear to auscultation, Normal air movement Cardiovascular: Regular rate, Normal S1, Normal S2, No murmurs Abdominal: Normal bowel sounds, Soft, No tenderness, No hepatosplenomegaly, No masses Extremities: No clubbing, No cyanosis, No edema, Normal pulses, Other (, deformity Left shoulder tenderness, postsurgical) Skin: No rashes, No breakdown, No significant lesion Neuro: Normal speech, Normal tone, Sensation intact, Cranial nerves 3-12 NL, Reflexes 2+, Other (Generalized weakness) Psych/Mental Status: Mental status NL, Mood NL laboratory and microbiology Laboratory Tests 03/12/24 06:29 Test 03/12/24 06:29 Range/Units Serum Glucose 154 H 74-106 mg/dL Labs and/or images reviewed: Labs reviewed by me, Image(s) reviewed by me Problem List/Assessment/Plan Problem List/Assessment/Plan Hospitalization summary/ Assessment: A 73-year-old female with diabetes mellitus and insomnia presented to the ED after falling and injuring her left shoulder on March 06, 2024. She reported tripping while getting up to use the bathroom, resulting in left shoulder pain. A CT scan revealed an anterior inferior dislocation with a comminuted fracture of the humeral head, small joint effusion, and mild soft tissue edema. Lab results showed elevated WBC (11.2) and troponin (3), with other values within normal ranges. She was started on IV Rocephin and admitted for further evaluation and management. She denies smoking, alcohol, or drug use and lives at home. Patient is hemodynamically stable, initially tried at home ibuprofen did not help came to the ED for further evaluation. Surgery rescheduled for tomorrow. Plan: # Dislocation of left shoulder joint: Pain controlled, no neuromuscular compromise, Consulted orthopedics. PT INR WNL, H&H stable. Status post surgery today. # Status post left reverse total shoulder: arthroplasty with Dr. Gutiérrez on 03/12/2024 completed. postsurgically stable. # Leukocytes likely Due to stress/UTI: Hemodynamically stable, afebrile continue IV ceftriaxone. # recurrent hypokalemia: corrected , recurrent hypokalemia corrected again. # elevated CK, resolved: Elevated CK 150, 688, IV fluid to continue trend CK>>> Trending down in 300s>>165 , renal function intact. # UTI , likely Gram-negative: Continue ceftriaxone check blood culture, urine culture. # Anxiety /insomnia: On trazodone 50 mg daily and sertraline 100 mg daily at nighttime. # Diabetes mellitus type 2: Ozempic and metformin at home. SSI in-hospital. target BG 140-180 mg/dl. # Microcytic anemia: Iron, FOBT, ferritin to follow up. Iron-deficiency anemia. # GERD: At home patient takes omeprazole 40 daily. oral pantoprazole to continue # COPD/asthma: patient on Wixela , albuterol, and fluticasone. # back pain, DDD: Patient on home gabapentin 300 mg daily. # Osteoporosis: Patient on ibandronate: My 50 mg tablet # Seasonal allergic: 1 cetirizine 10 mg daily , montelukast 10 mg daily. # dyslipidemia: atorvastatin 80 mg daily Diet: CC cardiac diet, NPO after midnight. GI prophylaxis: protonix 40mg Oral DVT prophylaxis: Lovenox 40mg subcutaneous Bowel regimen: Colace b.i.d. p.r.n. as patient is on pain opioids Barriers to discharge: Medical diagnosis and management in progress. Patient lives with / family. Independent for ADL. PCP: Dr. Wilkinson Specialist Relevant To Admission: orthopedics, consulted. Care discussion needed 37 minutes total time at bedside. Likely discharge tomorrow. Early discharge plan to continue. Patient care and plan discussed with Dr. Ambrose Plan discussed with: Patient, Other My Orders My Orders Orders - DELL WOOTEN RESIDENT Procedure Category Date Status Time Trazodone Hcl PHA 03/11/24 In Process (Desyrel) 22:00 Sertraline Hcl PHA 03/12/24 In Process (Zoloft) 10:00 Docusate Sodium PHA 03/11/24 In Process Capsule (Colace 15:15 Gabapentin Capsule PHA 03/12/24 In Process (Neurontin Capsule) 10:00 Atorvastatin (Lipitor) PHA 03/11/24 In Process 22:00 Hydrocodone-Acet PHA 03/11/24 In Process 7.5/325mg Tab ([place] 16:00 Consistent DIET 03/11/24 Transmitted Carb(Ccho)Diabetes Dinner Npo (Nothing By DIET 03/12/24 Transmitted Mouth) Diet Breakfast Ketamine 50mg/Ml 1ml PHA 03/12/24 In Process Syringe (Ketalar) 08:33 Basic Metabolic Panel LAB 03/12/24 Transmitted 17:00 Date of Service: Mar 12, 2024 Billing Provider: WANDA BRADSHAW MD Common Visit Codes: [id number] INP/OBS CARE(HIGH) DELL WOOTEN RESIDENT Mar 12, 2024 11:54 WANDA BRADSHAW MD Mar 13, 2024 09:31
[2024-03-12] MEDS ORDERED: NEOSTIGMINE 1 MG/ML INJ (10mg/10ML VIAL) ONE (12:17)
[2024-03-12] MEDS ORDERED: GLYCOPYRROLATE 0.2 MG/ML 1ML VIAL ONE (12:17)
[2024-03-12] MEDS ORDERED: LIDOCAINE 1% (LOCAL ANESTH.) PF 5ml SDV ONE (12:28)
[2024-03-12] MEDS: VANCOMYCIN HCL 1000 MG VL ONE (13:02)
[2024-03-12] MEDS: VANCOMYCIN HCL 1000 MG VL IV ONE (13:30)
--- NOTE | 2024-03-12 14:14 | DVHOP2 ---
Operative Report - 2 Report Details Date: 03/12/24 Preop Diagnosis: Left proximal humerus four part fracture Postop Diagnosis: Left proximal humerus four part fracture Surgeon: Blaise Gutiérrez MD Hatchery Laborer: Virginie Diallo, Physician Hatchery Laborer Anesthesiologist: Dr Espinoza Anesthesia: General, Regional Implant: Fx shoulder solutions, 10 mm stem, 3 mm constrained liner, 36 mm glenosphere, 3 mm lateralized base plate, a central post and four peripheral screws Consent: The patient was informed of the risks and benefits of the procedure. These in clude but are not limited to complications of anesthesia, postoperative infection, incomplete relief of symptoms, recurrence of symptoms, damage to blood vessels, nerves and tendons, deep venous thrombosis, pulmonary embolism and possible need for repeat surgery in the future. Complications: None Estimated Blood Loss: 100 mL Indications for Surgery: The patient is a 73-year-old female who presented to the emergency room with a history of shoulder trauma. Clinical and radiological evaluation demonstrated four part fracture with significant displacement. Nonoperative and operative management options were discussed given the patient's age and the significant displacement with the osteoporosis, surgery in the form of reverse shoulder replacement was discussed with her and her family. Pros and cons were discussed. Benefits, risks and treatment alternatives were discussed. Specific complications such as infection and dislocation were discussed in great detail. Longevity of the implant and long-term prognosis was also discussed with possible loosening and need for revision. Surgical complications such as neurovascular injury, infection, arthrofibrosis, loss of limb or life were discussed. She decided to proceed with the surgical option. Name of Procedure Performed Left reverse shoulder arthroplasty with open biceps tenodesis Procedure Details Procedure Details: The patient was identified in the preoperative holding area and the surgical site was marked. The consent was verified. The patient was brought into the operating room and placed supine on the operating table. General anesthesia was administered. The patient was brought into the beachchair position at 60 degrees angle. The extremity was prepped and draped in the usual sterile manner with Betadine and ChloraPrep. A timeout was called out to confirm the identity of the patient, the nature of surgery, the site of surgery, development of implants and x-rays and allergies to medications. All the bony prominences were appropriately padded Exposure: An extended deltopectoral approach was used. An incision was made from 1 cm superior to the coracoid to the upper arm lateral to the axillary line. The skin and the subcutaneous tissue were dissected. The deep fascia was incised. The cephalic vein was identified. The coracoid was identified and the conjoined tendon was also identified. The pectoralis tendon was torn and approximately 1 cm was released. The biceps tendon was identified and tenodesis was carried out. This was sutured to the pectoralis major tendon with the help of FiberWire suture and was cut proximally. Henry retractors were inserted. Adequate exposure was noted. The deltoid was released with the help of a Samano elevator for better exposure. The subscapularis tendon was identified. Some of it was attached to the lesser tuberosity that was still intact. The subscapularis tendon was released. Circumflex arteries and veins were coagulated. This was whipstitched for later identification and possible repair. The humeral head was exposed. The fracture fragment was displaced. This was carefully dissected from the soft tissue around it. The axillary nerve was palpa kvng and was visualized as well. This was intact. The subscapularis tendon was attached to the lesser tuberosity. This was preserved as well. The greater tuberosity was identified and three strong Ethibond sutures were passed around it. Glenoid exposure and implantation of glenoid prosthesis: A Darrach retractor was then inserted to retract the humeral head and expose the glenoid. Release of the anterior and posterior capsule was carried out. Release of the middle and inferior glenohumeral ligament was carried out. Superior labrum and biceps were removed. The articular cartilage was intact. A tug test was performed to confirm the position of the axillary nerve which was out of the surgical field. The inferior capsule was left intact and was released only with the help of a blunt elevator. Next, the center of the glenoid was marked with the help of a Bovie using the biceps and the coracoid as landmarks. Next a guide was inserted, a guidewire was inserted through the central portion. This was found to be in anatomic location, slightly inferior to the center. Next the central reamer was inserted. Next the hand-held peripheral reamer was inserted. The periphery was reamed, minimal cartilage was removed. Appropriate soft tissue resection was carried out. Minimal cartilage was removed to preserve the underlying bone. Next the baseplate was inserted with the help of an real estate job titles A central post was applied to the final implant on the back table and inserted with gentle taps. It was rotated to align the screws in the appropriate directions. Next a drill guide was used to drill the hole for the screws. Locking and nonlocking screws were used for excellent compression and fixation. The glenosphere was now implanted on top of the baseplate over the guidewire with the screw. The screw was rotated over the glenosphere for excellent fixation. No impingement was noted. A Kane was used to test the stability of baseplate as well as the glenosphere and was found to be very secure. Next, the proximal humerus was prepared. A sounder was used for this purpose. It was sounded up to size ten and was found to be very secure fit. Trial was carried out with +3 mm liner This was found to be adequate with 1 mm of shuck. The final stem and liner was opened up. Two sutures were passed in the holes on the stem as well. The joint was now trialed again with a 3 mm liner and was noticed to be excellent. A final 3 mm implant was opened up and inserted on the humeral stem. This was tapped and excellent fixation was noted. Excellent stability and range of motion was noted, abduction of 120 and flexion up to 120 degrees. The shoulder did not dislocate with adduction, internal rotation and extension or with abduction and external rotation. The greater tuberosity was now fixed back over the stem and to the lesser tuberosity/subscapularis. Lesser tuberosity was was still intact and attached to the proximal humerus. The subscapularis tendon was closed along with the sutures. Three horizontal and two vertical sutures were used to reattach the greater tuberosity and attached this time to the subscapularis. Excellent sta bility was noted. Very good reduction of the tuberosity was also noted. Irrigation was given with bulb syringe lavage with bacitracin and normal saline, Betadine and vancomycin powder was applied as well. All bony debris was also removed. C-arm was used throughout the procedure for evaluation of guidewire, baseplate and glenosphere position and finally humerus stem position and joint reduction. The deep tissue, skin and the subcutaneous tissue were closed with 0 Vicryl, 2-0 Vicryl and rose. Sterile dressing was applied. The patient was placed in a shoulder immobilizer. Condition Good Disposition Still a Patient BLAISE GUTIÉRREZ MD Mar 12, 2024 14:14
[2024-03-12] MEDS: LACTATED RINGER'S 1,000 ML IV SCH (14:15)
--- NOTE | 2024-03-12 15:38 | DVH ---
CLINICAL INDICATION: Post-op TECHNIQUE: 2 radiographic views of the left shoulder were obtained. Comparison: None FINDINGS/IMPRESSION: Redemonstration of proximal humerus fracture status post left shoulder reversed arthroplasty. The jerome dware appears intact. Mild soft tissue edema with subcutaneous emphysema about the left shoulder and skin rose over the left lateral shoulder consistent with recent surgery. Interstitial prominence which may be from low lung volumes.
--- NOTE | 2024-03-12 17:00 | DVH ---
CLINICAL INDICATION: LEFT TOTAL SHOULDER TECHNIQUE: 6 intraoperative images of shoulder surgery on the left and 1 dose sheet radiographic view s of the left shoulder surgery were obtained. Comparison: None FINDINGS/IMPRESSION: Total fluoro time 20.1 seconds Cumulative dose: 0.91 mGy
--- NOTE | 2024-03-12 17:05 | DVH ---
C-ARM FLUOROSCOPY: PROCEDURE: Left shoulder arthroplasty FLUOROSCOPY TIME: 20.1 seconds DAP: 0.91 mgy FINDINGS: Spot intraoperative C arm radiographs demonstrating left shoulder arthroplasty. IMPRESSION: Please refer to surgical report for detailed findings.
[2024-03-12] MEDS: ceFAZolin 1GM/50ML 50 ML IV SCH (17:54)
[2024-03-12 18:36] LABS: Chloride 106 mmol/L (98-107); Potassium 3.5 mmol/L (3.5-5.1); Sodium 141 mmol/L (136-145)
[2024-03-12 18:37] LABS: Anion Gap 9 (5-15); Calcium 9.1 mg/dL (8.7-10.4); Carbon Dioxide 26 mmol/L (20-31)
[2024-03-12 18:42] LABS: BUN/Creatinine Ratio 13.2 (10.0-20.0)
[2024-03-12 18:52] LABS: Blood Urea Nitrogen 7 mg/dL (9-23); Glucose 171 mg/dL (74-106)
[2024-03-12] MEDS: ACETAMINOPHEN 325 MG TAB PO PRN (20:27)
[2024-03-13 01:00] VITALS: BP 129/57; PULSE 97; RESP 18; TEMP 98.9; O2SAT 92
[2024-03-13 05:00] VITALS: BP 147/73; PULSE 86; RESP 19; TEMP 98.6; O2SAT 91
[2024-03-13 06:08] LABS: Hematocrit 29.1 % (36.0-46.0); Hemoglobin 9.6 g/dL (12.2-16.2)
[2024-03-13 06:25] LABS: Alanine Aminotransferase 17 U/L (7-40); Alkaline Phosphatase 58 U/L (46-116); Anion Gap 9 (5-15); Aspartate Aminotransferase 37 U/L (13-40); Bilirubin, Total 0.8 mg/dL (0.2-1.0); Calcium 9.2 mg/dL (8.7-10.4); Carbon Dioxide 25 mmol/L (20-31); Chloride 101 mmol/L (98-107); Total Protein 6.8 g/dL (5.7-8.2)
[2024-03-13 06:29] LABS: BUN/Creatinine Ratio 10.9 (10.0-20.0); Blood Urea Nitrogen < 5 mg/dL (9-23); Glucose 186 mg/dL (74-106); Sodium 135 mmol/L (136-145)
[2024-03-13 08:00] VITALS: PULSE 85
[2024-03-13 09:00] VITALS: BP 133/64; PULSE 86; RESP 16; TEMP 98.6; O2SAT 92
--- NOTE | 2024-03-13 09:35 | DVHDSRES ---
Discharge Summary Date of Admission Resident Creating Document: WANDA BRADSHAW MD Mar 09, 2024 at 22:35 Date of Discharge: Mar 13, 2024 Admitting Diagnosis Fall and fracture of left shoulder Wounds: Post- Surgical wound, clean Labs/Diagnostic Data: Laboratory Results Test 03/13/24 05:19 03/12/24 06:29 03/11/24 14:46 03/11/24 08:32 Hemoglobin 9.6 g/dL (12.2-16.2) Hematocrit 29.1 % (36.0-46.0) Sodium Level 135 mmol/L (136-145) Potassium Level 3.0 mmol/L (3.5-5.1) Chloride Level 101 mmol/L (98-107) Carbon Dioxide Level 25 mmol/L (20-31) Anion Gap 9 (5-15) Blood Urea Nitrogen < 5 mg/dL (9-23) Creatinine 0.46 mg/dL (0.550-1.02) Glomerular Filtration Rate Calc 102 mL/min (>90) BUN/Creatinine Ratio 10.9 (10.0-20.0) Serum Glucose 186 mg/dL (74-106) Calcium Level 9.2 mg/dL (8.7-10.4) Total Bilirubin 0.8 mg/dL (0.2-1.0) Aspartate Amino Transferase (AST) 37 U/L (13-40) Alanine Aminotransferase (ALT) 17 U/L (7-40) Alkaline Phosphatase 58 U/L (46-116) Total Protein 6.8 g/dL (5.7-8.2) Albumin 4.0 g/dL (3.2-4.8) White Blood Count 6.9 10^3/uL (4.4-10.8) Red Blood Count 3.63 10^6/uL (4.0-5.20) Mean Corpuscular Volume 83.1 fL (80.0-100.0) Mean Corpuscular Hemoglobin 27.0 pg (28.0-32.0) Mean Corpuscular Hemoglobin Concent 32.5 g/dL (32.0-36.0) Red Cell Distribution Width 17.8 % (11.8-14.3) Platelet Count 221 10^3/uL (140-450) Mean Platelet Volume 7.4 fL (6.9-10.8) Neutrophils (%) (Auto) 56.7 % (37.0-80.0) Lymphocytes (%) (Auto) 30.9 % (10.0-50.0) Monocytes (%) (Auto) 9.2 % (0.0-12.0) Eosinophils (%) (Auto) 2.9 % (0.0-7.0) Basophils (%) (Auto) 0.3 % (0.0-2.0) Neutrophils # (Auto) 3.9 10 ^3/uL (1.6-8.6) Lymphocytes # (Auto) 2.1 10 ^3/uL (0.4-5.4) Monocytes # (Auto) 0.6 10 ^3/uL (0-1.3) Eosinophils # (Auto) 0.2 10 ^3/uL (0-0.8) Basophils # (Auto) 0 10 ^3/uL (0-0.2) Nucleated Red Blood Cells 0.1 % Creatine Kinase 165 U/L (34-145) Urine Color Light-yellow (Yellow) Urine Clarity Clear (Clear) Urine pH 6.5 (5.0-9.0) Urine Specific [place] 1.008 (1.001-1.035) Urine Protein Negative (Negative) Urine Ketones 1+ (Negative) Urine Blood Negative /uL (Negative) Urine Nitrite Negative (Negative) Urine Bilirubin Negative (Negative) Urine Urobilinogen Normal mg/dL (Negative) Urine Leukocyte Esterase Trace /uL (Negative) Urine RBC <1 /hpf (0 - 4) Urine WBC 3 /hpf (0 - 5) Urine Squamous Epithelial Cells Few /hpf (<5) Urine Bacteria None seen /hpf (None Seen) Urine Glucose Normal mg/dL (Normal) Influenza Type A Antigen Negative (Negative) Influenza Type B Antigen Negative (Negative) SARS-CoV-2 Antigen (Rapid) Negative (NEGATIVE) Test 03/11/24 06:59 03/10/24 10:44 03/10/24 06:47 03/09/24 17:26 Iron Level 39 ug/dL (50-170) Total Iron Binding Capacity 329 ug/dL (250-425) Percent Iron Saturation 11.9 % (15-50) Ferritin 24.4 ng/mL (10-291) Urine Mucus Few (None Seen) Urine Opiates Screen Pos (NEGATIVE) Urine Fentanyl Screen Neg (NEGATIVE) Urine Barbiturates Screen Neg (NEGATIVE) Urine Phencyclidine Screen Neg (NEGATIVE) Urine Amphetamines Screen Neg (NEGATIVE) Urine Benzodiazepines Screen Neg (NEGATIVE) Urine Cocaine Screen Neg (NEGATIVE) Urine Cannabinoids Screen Neg (NEGATIVE) Prothrombin Time 11.5 sec (9.3-11.8) Prothrombin Time INR 1.09 (0.9-1.15) Thyroid Stimulating Hormone (TSH) 2.71 uIU/mL (0.55-4.78) Plasma/Serum Blood Alcohol < 3.0 mg/dL (<10) Troponin I High Sensitivity < 3 ng/L (</=34) Test 03/09/24 14:25 Lactic Acid Level 1.2 mmol/L (0.4-2.0) Other Laboratory Tests 03/13/24 05:19 03/12/24 06:29 Brief Hx & Hospital Course: Hospitalization summary/ Assessment: Ms. Ji, a 73-year-old female with multiple chronic conditions, including diabetes, anxiety, depression, GERD, COPD/asthma, osteoporosis, and insomnia, presented to the ED on March 06, 2024, after tripping and injuring her left shoulder.Attempted to treat conservatively however pain became worse at at that time patient presented to ER for further evaluation. A CT scan revealed an anterior inferior dislocation with a comminuted fracture of the humeral head, small joint effusion, and mild soft tissue edema. Status post left reverse total shoulder arthroplasty with Dr. Gutiérrez on 03/12/2024 completed. Post surgically patient is stable and denies any immediate complication. Patient is discharged home with counseling, advice to follow up with the PCP, as needed pain medication and 2 weeks post discharge follow up advice with orthopedics. Patient lives with / family. Independent for ADL confirming safety with physiotherapy evaluation. Medical conditions treated in hospital: # Dislocation of left shoulder joint, localized pain and deformity, no neurovascular compromise. # Status post left reverse total shoulder: arthroplasty with Dr. Gutiérrez on 03/12/2024. # Leukocytes likely Due to stress/UTI s/p IV ceftriaxone changed to oral keflex. # recurrent hypokalemia, corrected. # elevated CK, resolved: Elevated CK 150>688>300s>>165 , IV fluid, renal function intact. # UTI , likely Gram-negative: Continue ceftriaxone check blood culture, urine culture. # Anxiety /insomnia: On trazodone 50 mg daily and sertraline 100 mg daily at nighttime. # Diabetes mellitus type 2: Ozempic and metformin at home. SSI in-hospital. target BG 140-180 mg/dl. CC cardiac diet # Microcytic anemia, Iron-deficiency anemia: continue daily 324 iron pill with vitamin c. # GERD, omeprazole 40 daily. # COPD/asthma: patient on Wixela , albuterol, and fluticasone. # back pain, DDD: Patient on home gabapentin 300 mg daily. # Osteoporosis: Patient on ibandronate: My 50 mg tablet continue. # Seasonal allergic: 1 cetirizine 10 mg daily , montelukast 10 mg daily. # dyslipidemia: atorvastatin 80 mg daily Disposition: Home with family support. Follow up: PCP: Dr. Wilkinson , within 1-2 weeks of hospital discharge. O rthopedics: Dr. Gutiérrez, 2 weeks post discharge for further follow up. Medications at discharge: 4 more days of oral Keflex 500 mg BID, vitamin c + ferous sulphate 324 daily + 500 mcg of vitamin tablet daily. continue other home meds. For mild pain 0-3 / 10 tylenol 650mg as needed q6, for 4-7/10 ibuprofen 200 as needed q4 and for severe pain 8-10 /10 please try norco 7.5 q6 hours. Patient care and plan discussed with Dr. Ambrose Discharge planning needed 41 minutes of detailed discussion. Patient and family is agreeable to the plan. Consults/Reason for consult Orthopedics Operations or Procedures Status post left reverse total shoulder: arthroplasty with Dr. Gutiérrez on 03/12/2024. [place] [address] Ph: [phone] DIAGNOSTIC IMAGING Diagnostic Imaging Report : [id number] Signed PATIENT: MALLORY JI ACCT: [id number] UNIT: [id number] : 1950 LOC: ER ROOM / BED: / AGE / SEX: 73 / F ADM STATUS: REG ER SERVICE 1533 ORDERING PHYSICIAN: DERRICK TURNER DO PROCEDURE(s): UPEWO - UPPER EXTREMITY WO CONTRAST REASON: Left shoulder injury ORDER NUMBER(s): [id number], ACCESSION NUMBER(s): [id number] EXAM: CT UPPER EXTREMITY WO CONTRAST INDICATION: Left shoulder injury EXAM DATE: 03/09/2024 03:38 PM COMPARISON: None TECHNIQUE: Multiple axial CT images of the left shoulder were obtained using bone algorithm. Axial and coronal reformatting was done. Bone and soft tissue windows were reviewed. Radiation Dose Information: CT Dose: CTDI volume is 22.92 mGy. Dose-length product is 521.49 mGy*cm Findings/Impression: Anterior inferior dislocation of the left shoulder with comminuted fracture of the humeral head. There is no evidence of blastic or lytic lesions. No radiopaque foreign bodies. Small joint effusion. Mild soft tissue edema. ATED BY: DESTINEE DIAZ DO DICTATED DATE/TIME: 03/09/241609 SIGNED BY: DESTINEE DIAZ DO SIGNED DATE/TIME: 03/09/241609 CC: [place] [address] Ph: [phone] DIAGNOSTIC IMAGING Diagnostic Imaging Report : [id number] Signed PATIENT: MALLORY JI ACCT: [id number] UNIT: [id number] : 1950 LOC: [facility] ROOM / BED: [address] [place] [address] AGE / SEX: 73 / F ADM STATUS: ADM IN SERVICE 1402 ORDERING PHYSICIAN: BO SINGLETARY MD PROCEDURE(s): CXR1 - CHEST XRAY 1 VIEW REASON: CAD ORDER NUMBER(s): [id number], ACCESSION NUMBER(s): [id number] CHEST RADIOGRAPH Indication: CAD Technique: Single frontal view of the chest was obtained COMPARISON: XY CHEST PORTABLE on DOS: 03/04/23 FINDINGS: Lines and Tubes: None Lungs: Congestion Pleura: No effusion. No pneumothorax. Cardiomediastinal contours: Unremarkable Bones: Unremarkable IMPRESSION: Mild congestion ATED BY: TYLOR SANTAMARIA MD DICTATED DATE/TIME: 03/10/241544 SIGNED BY: TYLOR SANTAMARIA MD SIGNED DATE/TIME: 03/10/241544 CC: [place] [address] Ph: [phone] DIAGNOSTIC IMAGING Diagnostic Imaging Report : [id number] Signed PATIENT: MALLORY JI ACCT: [id number] UNIT: [id number] : 1950 LOC: [facility] ROOM / BED: [address] [place] [address] AGE / SEX: 73 / F ADM STATUS: ADM IN SERVICE 1404 ORDERING PHYSICIAN: GEORGINA GUTIÉRREZ MD PROCEDURE(s): LSHD - L SHOULDER 1V XRAY REASON: Post-op ORDER NUMBER(s): [id number], ACCESSION NUMBER(s): [id number] CLINICAL INDICATION: Post-op TECHNIQUE: 2 radiographic views of the left shoulder were obtained. Comparison: None FINDINGS/IMPRESSION: Redemonstration of proximal humerus fracture status post left shoulder reversed arthroplasty. The hardware appears intact. Mild soft tissue edema with subcutaneous emphysema about the left shoulder and skin rose over the left lateral shoulder consistent with recent surgery. Interstitial prominence which may be from low lung volumes. ATED BY: LEYDI DENISE DO DICTATED DATE/TIME: 03/12/24 153 SIGNED BY: LEYDI DENISE DO SIGNED DATE/TIME: 03/12/24 1534 CC: [place] [address] Ph: [phone] DIAGNOSTIC IMAGING Diagnostic Imaging Report : [id number] Signed PATIENT: MALLORY JI ACCT: [id number] UNIT: [id number] : 1950 LOC: [facility] ROOM / BED: [address] [place] [address] AGE / SEX: 73 / F ADM STATUS: ADM IN SERVICE 1551 ORDERING PHYSICIAN: DELL WOOTEN PROCEDURE(s): CARM1 - C ARM FLUOROSCOPY UP TO 60MIN REASON: LEFT TOTAL SHOULDER ORDER NUMBER(s): [id number], ACCESSION NUMBER(s): [id number] C-ARM FLUOROSCOPY: PROCEDURE: Left shoulder arthroplasty FLUOROSCOPY TIME: 20.1 seconds DAP: 0.91 mgy FINDINGS: Spot intraoperative C arm radiographs demonstrating left shoulder arthroplasty. IMPRESSION: Please refer to surgical report for detailed findings. ATED BY: TYLOR SANTAMARIA MD DICTATED DATE/TIME: 03/12/241699 SIGNED BY: TYLOR SANTAMARIA MD SIGNED DATE/TIME: 03/12/241699 CC: [place] [address] Ph: [phone] DIAGNOSTIC IMAGING Diagnostic Imaging Report : [id number] Signed PATIENT: MALLORY JI ACCT: [id number] UNIT: [id number] : 1950 LOC: [facility] ROOM / BED: [facility] / B AGE / SEX: 73 / F ADM STATUS: ADM IN SERVICE 155 ORDERING PHYSICIAN: DELL WOOTEN RESIDENT PROCEDURE(s): LSHD2 - L SHOULDER 2+ VIEW XRAY REASON: LEFT TOTAL SHOULDER ORDER NUMBER(s): [id number], ACCESSION NUMBER(s): [id number] CLINICAL INDICATION: LEFT TOTAL SHOULDER TECHNIQUE: 6 intraoperative images of shoulder surgery on the left and 1 dose sheet radiographic views of the left shoulder surgery were obtained. Comparison: None FINDINGS/IMPRESSION: Total fluoro time 20.1 seconds Cumulative dose: 0.91 mGy ATED BY: JAN WEI Jr., DO DICTATED DATE/TIME: 03/12/241657 SIGNED BY: JAN WEI Jr., DO SIGNED DATE/TIME: 03/12/241657 CC: Condition at Discharge: Good Final Diagnosis/Problems List # Dislocation of left shoulder joint, localized pain and deformity, no neurovascular compromise. # Status post left reverse total shoulder: arthroplasty with Dr. Gutiérrez on 03/12/2024. # Leukocytes likely Due to stress/UTI # recurrent hypokalemia, corrected. # elevated CK, resolved: # UTI , likely Gram-negative: # Anxiety /insomnia: # Diabetes mellitus type 2: # Microcytic anemia, Iron-deficiency anemia: # GERD, omeprazole 40 daily. # COPD/asthma: # back pain, DDD: # Osteoporosis: # Seasonal allergic # dyslipidemia: Discharge Disposition: Home Discharge Instruct/Medications Diet: Consistent carbohydrate, Cardiac 2g Na,low cholest Activity: No Restrictions, As Tolerated Follow Up/Referral: as above Medications: as above Discharge Statement: "Patient was advised to return to the ER or call 911 if any headaches, dizziness, shortness of breath, chest pain, abdominal pain, bleeding, fevers, or worsening of medical condition. Patient was counseled about treatment plan, medications, possible side effects, patientverbalized understanding. All questions were answered to the best of my ability. This discharge took greater then 30 minutes in planning, reviewing documentation, counseling the patient, and discussing with other team members." ASSESSMENT ASSESSMENT Assessment Left proximal humerus four part fracture Date of Service: Mar 13, 2024 Billing Provider: WANDA BRADSHAW MD Common Visit Codes: 57005-NAX/OBS DISCH DAY >30min DELL WOOTEN RESIDENT Mar 13, 2024 09:35 WANDA BRADSHAW MD Mar 14, 2024 09:49
[2024-03-13] MEDS ORDERED: traMADol HCL 50 MG TAB PO PRN (10:00)
[2024-03-13] MEDS: POTASSIUM EFFERVESENT TAB 25 MEQ PO ONE (10:08)
--- NOTE | 2024-03-13 10:11 | DVHPN2 ---
Progress Note - Dictate Date Seen: Mar 13, 2024 Has the PT tested + for MRSA If YES, has PT been informed?: No Medical Necessity Reason Pt with a Central, PICC or Fol: No Subjective Patient was lying comfortably in bed during my evaluation reports some postoperative shoulder pain that is being well managed with the help of pain medication. Patient reports not having gotten up and walked with the help of physical therapy as of yet and has remained in bed and in her shoulder immobilizer. Patient is otherwise feeling well denying any overnight events or any complaints or concerns during my evaluation. vital signs Vital Sign Date Time Temp Pulse Resp B/P (MAP) Pulse Ox O2 Delivery O2 Flow Rate FiO2 03/13/24 09:00 98.6 86 16 133/64 (87) 92 98.6 03/12/24 20:00 Room Air* 0 21 Total Intake and Output 03/12/24 03/12/24 03/13/24 15:00 23:00 07:00 Intake Total 500 ml 50 ml 50 ml Balance 500 ml 50 ml 50 ml medications Current Medications Medications Dose Ordered Sig/Cari Route Start Time Stop Time Status Last Admin Dose Admin Diagnostic Test (Pha) 1 strip ACHS 03/09/24 22:00 03/13/24 04:53 1 STRIP Insulin Human Regular HS SC 03/09/24 22:00 03/12/24 22:43 2 UNITS Insulin Human Regular AC SC 03/10/24 07:00 03/13/24 05:05 3 UNITS Dextrose 50 ml UD PRN IV 03/09/24 20:45 Ondansetron HCl 4 mg Q4HP PRN IV 03/09/24 20:45 Enoxaparin Sodium 40 mg DAILY SC 03/10/24 10:00 03/13/24 09:35 40 MG Acetaminophen 650 mg Q6HP PRN PO 03/09/24 20:45 03/12/24 20:27 650 MG Nitroglycerin 0.4 mg Q5MINP PRN SL 03/09/24 22:45 Morphine Sulfate 2 mg Q30M PRN IV 03/09/24 22:45 Pantoprazole Sodium 40 mg DAILY@0600 PO 03/11/24 06:00 03/13/24 04:53 40 MG Morphine Sulfate 2 mg Q6HPRN PRN IV 03/11/24 03:45 03/12/24 22:33 2 MG Lidocaine 1 patch DAILY TOP 03/11/24 10:00 03/13/24 09:35 1 PATCH Docusate Sodium 100 mg BIDPRN PRN PO 03/11/24 08:45 Cancel Trazodone HCl 75 mg HS PO 03/11/24 22:00 03/12/24 23:45 75 MG Sertraline HCl 100 mg DAILY PO 03/12/24 10:00 03/13/24 09:34 100 MG Docusate Sodium 100 mg BIDPRN PRN PO 03/11/24 15:15 Gabapentin 300 mg DAILY PO 03/12/24 10:00 03/13/24 09:34 300 MG Atorvastatin Calcium 80 mg HS PO 03/11/24 22:00 03/12/24 22:28 80 MG Albuterol 1.25 mg Q4HPRN PRN NEB 03/11/24 15:15 Cancel Cephalexin 500 mg BID PO 03/13/24 10:00 Ascorbic Acid 500 mg DAILY PO 03/13/24 10:00 Ferrous Sulfate 325 mg DAILY PO 03/13/24 10:00 Tramadol HCl 50 mg Q4HP PRN PO 03/13/24 10:00 objective A&O x4 in no acute distress Shoulder range of motion not fully evaluated as patient remains in shoulder immobilizer Aquacel dressing clean, dry, and intact No distal edema or calf tenderness to palpation Neurovascularly intact with cap refill less than 2 seconds laboratory and microbiology Laboratory Tests 03/13/24 05:19 03/12/24 06:29 Test 03/13/24 05:19 Range/Units Serum Glucose 186 H 74-106 mg/dL Assessment/Plan Continue current management as well as pain control and nurse reports patient is pending treatment for her hypokalemia. I advised the patient to remain in her shoulder immobilizer for six weeks from the date of surgery but advised her to come out to work on gentle [id number] exercises of her elbow, wrist, and hand after two weeks. I also instructed the patient to follow up with our office in 10-14 days for her 1st postoperative evaluation once she has been discharged home. I also advised the patient to maintain her dressing clean, dry, and intact and to call our office if she has any questions or concerns. Rx sent via our outpatient EMR system. She understood and agreed. Plan discussed with: Patient, Spouse AMELIA GRAVES Mar 13, 2024 10:11
--- NOTE | 2024-03-13 10:29 | ECG ---
[facility] Test Date: 2024-03-12 Test Time: 09:56:55 Pat Name: MALLORY JI Department: Room: [facility]1T B Gender: F [employer]: BOLA : 1950 Requested By: DELL WOOTEN Order Number: [id number] Reading MD: Sam Rodriguez Measurements Intervals [place] Rate: 81 P: 33 MN: 162 QRS: 18 QRSD: 78 T: 0 QT: 372 QTc: 432 Interpretive Statements Normal sinus rhythm Nonspecific T wave abnormality Electronically Signed On 03-13-2024 12:27:14 PST by Sam Rodriguez Please click the below link to view image of tracing.
--- NOTE | 2024-03-13 10:30 | ECG ---
[facility] Test Date: 2024-03-12 Test Time: 09:57:23 Pat Name: MALLORY JI Department: Room: [facility]1T B Gender: F [employer] Ad[employer]er: BOLA : 1950 Requested By: JERSEY HUERTA Order Number: [id number] Reading MD: Sam Rodriguez Measurements Intervals [place] Rate: 79 P: 31 TN: 150 QRS: 15 QRSD: 80 T: 3 QT: 342 QTc: 392 Interpretive Statements Normal sinus rhythm Nonspecific repol abnormality diffuse leads Electronically Signed On 03-13-2024 12:27:31 PST by Sam Rodriguez Please click the below link to view image of tracing.
[2024-03-13] MEDS: BUPIVACAINE 0.25% INJ 50ML VIAL ONE (12:24)
[2024-03-13] MEDS: BUPIVACAINE HCL 0 ML ONE (12:24)
[2024-03-13] MEDS: TRANEXAMIC ACID 20 ML ONE (12:25)
[2024-03-13] MEDS: METOCLOPRAMIDE HCL 5MG/ml INJ 2ml VIAL IV ONE (12:25)
[2024-03-13] MEDS: POTASSIUM CHL 20MEQ/100ML 200 ML IV ONE (12:26)
[2024-03-13] MEDS: POTASSIUM CHL 20MEQ/100ML 100 ML IV SCH (12:38)
[2024-03-13 12:41] VITALS: BP 145/73; PULSE 94; RESP 16; TEMP 98.5; O2SAT 90
[2024-03-13] MEDS: ASCORBIC ACID 500 MG TAB PO SCH (13:20)
[2024-03-13] MEDS: CEPHALEXIN 250 MG CAP PO SCH (13:20)
[2024-03-13] MEDS: FERROUS SULFATE 325mg EC TAB PO SCH (13:20)
[2024-03-13] MEDS ORDERED: HYDR-4798 PO (16:21)
[2024-03-13] MEDS ORDERED: CEPH250C PO (16:21)
[2024-03-13 17:00] VITALS: BP 159/81; PULSE 100; RESP 20; TEMP 101; O2SAT 89
== END 2024-03-13 15:35 | disposition home or self-care (01) | DRG 483 ==
LOC: ER 13:05 → TELE 22:35 → TELE-EAST 03-11 18:27
PROVIDERS: ADMIT Student in an Organized Health Care Education/Training Program; ATTEND Emergency Medicine
PROC: 0RRK00Z Replacement of Left Shoulder Joint with Reverse Ball and Socket Synthetic Substitute, Open Approach (ICD-10-PCS; 2024-03-12)
PROC: 0LS40ZZ Reposition Left Upper Arm Tendon, Open Approach (ICD-10-PCS; principal; 2024-03-12 11:15)
DX: S42.242A 4-part fracture of surgical neck of left humerus, initial encounter for closed fracture (principal); N39.0 Urinary tract infection, site not specified; S42.92XA Fracture of left shoulder girdle, part unspecified, initial encounter for closed fracture; S40.022A Contusion of left upper arm, initial encounter; S43.015A Anterior dislocation of left humerus, initial encounter; S43.035A Inferior dislocation of left humerus, initial encounter; D72.829 Elevated white blood cell count, unspecified; Z20.822 Contact with and (suspected) exposure to COVID-19; E11.9 Type 2 diabetes mellitus without complications; J44.89 Other specified chronic obstructive pulmonary disease; W01.0XXA Fall on same level from slipping, tripping and stumbling without subsequent striking against object, initial encounter; K21.9 Gastro-esophageal reflux disease without esophagitis; E87.6 Hypokalemia; F32.A Depression, unspecified; M81.0 Age-related osteoporosis without current pathological fracture; D50.9 Iron deficiency anemia, unspecified; F41.9 Anxiety disorder, unspecified; E78.5 Hyperlipidemia, unspecified; G47.00 Insomnia, unspecified; Y93.89 Activity, other specified; Y92.89 Other specified places as the place of occurrence of the external cause; Y99.8 Other external cause status; Z90.710 Acquired absence of both cervix and uterus
CPT/HCPCS: 36415; 71045; 73020; 73030; 73200; 76000; 80048; 80053; 80307; 80320; 81001; 82550; 82728; 82962; 83540; 83550; 83605; 84443; 84484; 85014; 85018; 85025; 85610; 86850; 86900; 86901; 87426; 87804; 93005; 97163; G0378; J1100; J1815; J1885; J2250; J2405; J2704; J3480; J3490

== ENCOUNTER → 2024-05-16 | Outpatient (CLI) | payer MEDICAID ==
[~2024-05-16] MED LIST changes: +ALBU108A5 INH; +ATOR-47 PO; +CEPH250C PO; +CETI-120 PO; +GABA-1250 PO; +HYDR-4798 PO; +SERT-160 PO; +SERT-206 PO; +TRAZ-227 PO
[2024-05-16 07:49] LABS: Urine Bacteria None Seen /hpf (None Seen)
[2024-05-16 08:13] LABS: Basophils # (auto) 0 10 ^3/uL (0-0.2); Basophils % (auto) 0.2 % (0.0-2.0); Eosinophils # (auto) 0.2 10 ^3/uL (0-0.8); Eosinophils % (auto) 2.6 % (0.0-7.0); Hematocrit 32.7 % (36.0-46.0); Hemoglobin 10.6 g/dL (12.2-16.2); Lymphocytes # (auto) 3.1 10 ^3/uL (0.4-5.4); Lymphocytes % (auto) 40.8 % (10.0-50.0); Mean Corpuscular Hemoglobin 25.4 pg (28.0-32.0); Mean Corpuscular Hgb Conc. 32.4 g/dL (32.0-36.0); Mean Corpuscular Volume 78.3 fL (80.0-100.0); Monocytes # (auto) 0.5 10 ^3/uL (0-1.3); Monocytes % (auto) 6.6 % (0.0-12.0); Neutrophils # (auto) 3.7 10 ^3/uL (1.6-8.6); Neutrophils % (auto) 49.8 % (37.0-80.0); Nucleated Red Blood Cells % 0.1 %; Platelet Count (auto) 276 10^3/uL (140-450); Red Blood Cells 4.17 10^6/uL (4.0-5.20); Red Cell Distribution Width 16.7 % (11.8-14.3); White Blood Cell 7.5 10^3/uL (4.4-10.8)
[2024-05-16 08:19] LABS: Urine Blood Negative /uL (Negative); Urine Clarity Clear (Clear); Urine Color Light-Yellow (Yellow); Urine Mucus FEW (None Seen); Urine Protein, UAD Negative (Negative); Urine Specific Gravity 1.016 (1.001-1.035); Urine Squamous Epithelial Cell FEW /hpf (<5); Urine Urobilinogen Normal (Negative); Urine WBC 1 /HPF (0-5)
[2024-05-16 08:36] LABS: Alanine Aminotransferase 15 U/L (7-40); Albumin 4.8 g/dL (3.2-4.8); Alkaline Phosphatase 95 U/L (46-116); Anion Gap 9 (5-15); Aspartate Aminotransferase 23 U/L (13-40); BUN/Creatinine Ratio 14.3 (10.0-20.0); Calcium 9.6 mg/dL (8.7-10.4); Carbon Dioxide 29 mmol/L (20-31); Chloride 102 mmol/L (98-107); Cholesterol 87 mg/dL (< 200); LDL Cholesterol 30 mg/dL (< 100); Potassium 3.7 mmol/L (3.5-5.1); Sodium 140 mmol/L (136-145); Total Protein 7.9 g/dL (5.7-8.2); Triglycerides 122 mg/dL (< 150)
[2024-05-16 08:37] LABS: Bilirubin, Total 0.3 mg/dL (0.2-1.0)
[2024-05-16 08:43] LABS: Blood Urea Nitrogen 8 mg/dL (9-23); Glucose 146 mg/dL (74-106); HDL Cholesterol 40 mg/dL (40-59)
== END | disposition home or self-care (01) ==
LOC: LAB 07:19
PROVIDERS: ATTEND Nurse Practitioner Family
DX: E78.5 Hyperlipidemia, unspecified (principal); E11.9 Type 2 diabetes mellitus without complications; E55.9 Vitamin D deficiency, unspecified
CPT/HCPCS: 36415; 80053; 80061; 81001; 82306; 82607; 83036; 84443; 85025

== ENCOUNTER → 2024-06-17 | Outpatient (CLI) | payer MEDICAID ==
[~2024-06-17] MED LIST changes: +ALBUTEROL SULF 2.5 MG/0.5ML(0.5%) NEB SOLN ONE
== END | disposition home or self-care (01) ==
LOC: RT 08:30
PROVIDERS: ATTEND Internal Medicine Pulmonary Disease
DX: J44.9 Chronic obstructive pulmonary disease, unspecified (principal); Z79.899 Other long term (current) drug therapy
CPT/HCPCS: 94060; 94618; 94727; 94729

== ENCOUNTER 2024-08-05 07:15 | Outpatient (CLI) | payer MEDICAID ==
[~2024-08-05 07:15] MED LIST changes: -ALBUTEROL SULF 2.5 MG/0.5ML(0.5%) NEB SOLN ONE
[2024-08-05 07:30] LABS: Urine Bacteria None Seen /hpf (None Seen)
[2024-08-05 07:52] LABS: Basophils # (auto) 0 10 ^3/uL (0-0.2); Basophils % (auto) 0.5 % (0.0-2.0); Eosinophils # (auto) 0.2 10 ^3/uL (0-0.8); Hematocrit 31.7 % (36.0-46.0); Hemoglobin 10.3 g/dL (12.2-16.2); Lymphocytes # (auto) 3.2 10 ^3/uL (0.4-5.4); Lymphocytes % (auto) 44.2 % (10.0-50.0); Mean Corpuscular Hemoglobin 24.5 pg (28.0-32.0); Mean Corpuscular Hgb Conc. 32.6 g/dL (32.0-36.0); Mean Corpuscular Volume 75.1 fL (80.0-100.0); Monocytes # (auto) 0.5 10 ^3/uL (0-1.3); Monocytes % (auto) 6.7 % (0.0-12.0); Neutrophils # (auto) 3.2 10 ^3/uL (1.6-8.6); Neutrophils % (auto) 45.6 % (37.0-80.0); Platelet Count (auto) 239 10^3/uL (140-450); Red Blood Cells 4.22 10^6/uL (4.0-5.20); White Blood Cell 7.1 10^3/uL (4.4-10.8)
[2024-08-05 08:09] LABS: Urine Blood Negative /uL (Negative); Urine Clarity Clear (Clear); Urine Color Light-Yellow (Yellow); Urine Mucus FEW (None Seen); Urine Protein, UAD Negative (Negative); Urine Squamous Epithelial Cell FEW /hpf (<5); Urine Urobilinogen Normal (Negative); Urine WBC 11 /HPF (0-5); Urine pH 5.5 (5.0-9.0)
[2024-08-05 08:14] LABS: Alanine Aminotransferase 26 U/L (7-40); Albumin 4.5 g/dL (3.2-4.8); Alkaline Phosphatase 65 U/L (46-116); Anion Gap 8 (5-15); Aspartate Aminotransferase 29 U/L (13-40); BUN/Creatinine Ratio 14.3 (10.0-20.0); Bilirubin, Total 0.4 mg/dL (0.2-1.0); Blood Urea Nitrogen 8 mg/dL (9-23); Calcium 10.2 mg/dL (8.7-10.4); Carbon Dioxide 29 mmol/L (20-31); Chloride 106 mmol/L (98-107); Cholesterol 99 mg/dL (< 200); Glucose 108 mg/dL (74-106); HDL Cholesterol 40 mg/dL (40-59); LDL Cholesterol 37 mg/dL (< 100); Potassium 3.9 mmol/L (3.5-5.1); Sodium 143 mmol/L (136-145); Total Protein 7.2 g/dL (5.7-8.2); Triglycerides 160 mg/dL (< 150)
[2024-08-05 10:23] LABS: % Iron Saturation 9.9 % (15-50)
== END 2024-08-05 17:00 | disposition home or self-care (01) ==
LOC: LAB 07:15
PROVIDERS: ATTEND Nurse Practitioner Family
DX: E11.42 Type 2 diabetes mellitus with diabetic polyneuropathy (principal); E78.5 Hyperlipidemia, unspecified; D50.9 Iron deficiency anemia, unspecified; Z79.899 Other long term (current) drug therapy
CPT/HCPCS: 36415; 80053; 80061; 81001; 82306; 82607; 83036; 83540; 83550; 84443; 85025

== ENCOUNTER 2024-12-24 12:21 | Outpatient (CLI) | payer MEDICAID ==
[2024-12-24 13:04] LABS: Anion Gap 10 (5-15); Carbon Dioxide 27 mmol/L (20-31); Chloride 103 mmol/L (98-107); Potassium 3.7 mmol/L (3.5-5.1); Sodium 140 mmol/L (136-145)
[2024-12-24 13:06] LABS: Calcium 9.4 mg/dL (8.7-10.4)
[2024-12-24 13:10] LABS: BUN/Creatinine Ratio 14.3 (10.0-20.0)
[2024-12-24 13:11] LABS: Microalb/Creat Ratio, Urine 10.0
[2024-12-24 13:15] LABS: Blood Urea Nitrogen 7 mg/dL (9-23); Glucose 67 mg/dL (74-106)
== END 2024-12-24 17:00 | disposition home or self-care (01) ==
LOC: LAB 12:21
PROVIDERS: ATTEND Nurse Practitioner Family
DX: E11.9 Type 2 diabetes mellitus without complications (principal)
CPT/HCPCS: 36415; 80048; 82043; 82570